=== PATIENT | male | born 1960 | race Caucasian/White ===

== ENCOUNTER 2017-11-21 07:55 | Emergency (ER) | payer OTHER, MEDICARE ==
[2017-11-21 07:56] VITALS: BMI 27.3
[2017-11-21 08:17] VITALS: PULSE 72; RESP 18; TEMP 98.2
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
--- NOTE | 2017-11-21 08:44 | RAD ---
Date of service: 11/21/2017 HISTORY: r/o infiltrate COMPARISON: Comparison chest dated 02/24/2016 FINDINGS: LUNGS: Mild bibasilar atelectasis right greater than left PLEURA: No significant pleural effusion identified, no pneumothorax apparent. CARDIOVASCULAR: Normal. OSSEOUS STRUCTURES: No significant abnormalities. VISUALIZED UPPER ABDOMEN: Normal. OTHER FINDINGS: None. IMPRESSION: Mild bibasilar atelectasis right greater than left
[2017-11-21 08:46] LABS: BASO # 0.04 K/mm3 (0.0-2.0); BASO % 0.6 % (0.0-3.0); EOS # 0.3 (0.0-0.7); EOS % 4.7 % (1.5-5.0); GRAN # 4.02 (1.4-6.5); GRAN % 60.4 % (50.0-68.0); HEMOGLOBIN 13.2 g/dL (14.0-18.0); LYMPH # 1.8 (1.2-3.4); LYMPH % 26.6 % (22.0-35.0); MEAN CELL VOLUME 85.7 fl (80.0-105.0); MEAN CORPUSCULAR HEMOGLOBIN 27.7 pg (25.0-35.0); MEAN CORPUSCULAR HGB CONC 32.3 g/dl (31.0-37.0); MEAN PLATELET VOLUME 9.2 fl (7.0-11.0); MONO # 0.5 (0.1-0.6); MONO % 7.7 % (1.0-6.0); RBC 4.77 10^6/uL (3.5-6.1); RED CELL DISTRIBUTION WIDTH 13.7 % (11.5-14.5); WHITE BLOOD COUNT 6.7 10^3/ul (4.5-11.0)
[2017-11-21 08:55] LABS: ALB/GLOB RATIO 1.5 (1.1-1.8); ALBUMIN 4.3 g/dL (3.0-4.8); ALT/SGPT 30 U/L (7-56); AST/SGOT 27 U/L (17-59); BLOOD UREA NITROGEN 21 mg/dL (7-21); CALCIUM 9.5 mg/dL (8.4-10.5); GFR NON-AFRICAN AMERICAN 57
[2017-11-21 09:06] LABS: TROPONIN I < 0.01 ng/mL
[2017-11-21 09:40] VITALS: BP 125/70; O2SAT 99
--- NOTE | 2017-11-21 12:56 | CARD ---
APPROVED REPORT Date of service: 11/21/2017 EKG Measurement Heart [id number] <Conclusion> Normal sinus rhythm Normal ECG
== END 2017-11-21 09:38 | disposition home or self-care (01) ==
LOC: ED 07:55
DX: R07.89 Other chest pain (principal); I10 Essential (primary) hypertension

== ENCOUNTER 2017-11-26 08:24 | Inpatient (IN) | payer MEDICARE, OTHER ==
[2017-11-26] MEDS ORDERED: Sodium Chloride 0.9% 1,000 ML IV STA (09:18)
[2017-11-26 10:37] LABS: VENOUS BLOOD GAS BASE EXCESS -0.7 mmol/L (0.0-2.0); VENOUS BLOOD GAS PO2 33 mm/Hg (30-55); VENOUS BLOOD PH 7.39 (7.32-7.43)
[2017-11-26 10:58] LABS: ALB/GLOB RATIO 1.2 (1.1-1.8); ALBUMIN 4.9 g/dL (3.0-4.8); ALT/SGPT 13 U/L (7-56); AMYLASE 68 U/L (35-125); AST/SGOT 51 U/L (17-59); BASO # 0.01 K/mm3 (0.0-2.0); BASO % 0.1 % (0.0-3.0); BLOOD UREA NITROGEN 20 mg/dL (7-21); CALCIUM 9.8 mg/dL (8.4-10.5); EOS % 0.4 % (1.5-5.0); GFR NON-AFRICAN AMERICAN > 60; GRAN # 8.09 (1.4-6.5); GRAN % 85.4 % (50.0-68.0); HEMOGLOBIN 15.4 g/dL (14.0-18.0); LIPASE 27 U/L (23-300); LYMPH # 0.9 (1.2-3.4); MEAN CELL VOLUME 84.5 fl (80.0-105.0); MEAN CORPUSCULAR HEMOGLOBIN 28.1 pg (25.0-35.0); MEAN CORPUSCULAR HGB CONC 33.2 g/dl (31.0-37.0); MONO # 0.5 (0.1-0.6); MONO % 5.1 % (1.0-6.0); RBC 5.49 10^6/uL (3.5-6.1); RED CELL DISTRIBUTION WIDTH 13.6 % (11.5-14.5); WHITE BLOOD COUNT 9.5 10^3/ul (4.5-11.0)
[2017-11-26 11:04] LABS: TROPONIN I 0.01 ng/mL
[2017-11-26 11:05] LABS: PH,URINE 5.5 (4.7-8.0); URINE BILIRUBIN NEGATIVE (NEGATIVE); URINE BLOOD NEGATIVE (NEGATIVE); URINE GLUCOSE (UA) NEGATIVE (NEGATIVE); URINE LEUKOCYTE ESTERASE NEGATIVE Leu/uL (NEGATIVE); URINE PROTEIN 30 mg/dL (<30 mg/dL); URINE UROBILINOGEN 0.2 E.U./dL (<1 E.U./dL)
[2017-11-26 11:06] LABS: INR 1.14; PARTIAL THROMBOPLASTIN TIME 30.3 Seconds (25.1-36.5); PROTHROMBIN TIME 13.1 SECONDS (9.4-12.5)
[2017-11-26 11:10] LABS: URINE APPEARANCE CLEAR (CLEAR); URINE COLOR YELLOW (YELLOW)
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
[2017-11-26 11:25] LABS: URINE RBC 0 - 2 /hpf (0-2); URINE WBC 0 - 2 /hpf (0-6)
[2017-11-26] MEDS ORDERED: Iohexol 350 MG/100 ML VIAL ONE (11:25)
[2017-11-26 11:26] LABS: URINE BACTERIA MANY (NEG); URINE EPITHELIAL CELLS 0 - 2 /hpf (0-5); URINE HYALINE CAST 0 - 2 /hpf
[2017-11-26 11:27] LABS: URINE AMORPHOUS SEDIMENT FEW
[2017-11-26 12:02] LABS: ALB/GLOB RATIO 1.3 (1.1-1.8); ALBUMIN 3.9 g/dL (3.0-4.8); ALT/SGPT 26 U/L (7-56); AST/SGOT 22 U/L (17-59); BLOOD UREA NITROGEN 18 mg/dL (7-21); CALCIUM 8.8 mg/dL (8.4-10.5); GFR NON-AFRICAN AMERICAN > 60
--- NOTE | 2017-11-26 13:20 | CT ---
Date of service: 11/26/2017 PROCEDURE: CT Abdomen and Pelvis with contrast HISTORY: abdominal pain COMPARISON: None. TECHNIQUE: Contrast dose: 100 mL Omnipaque 350 Radiation dose: Total exam DLP = 514.9 mGy-cm. This CT exam was performed using one or more of the following dose reduction techniques: Automated exposure control, adjustment of the mA and/or kV according to patient size, and/or use of iterative reconstruction technique. FINDINGS: LOWER THORAX: Cardiomegaly. Coronary arterial and valvular calcifications. Bibasilar dependent atelectasis. Trace bilateral pleural effusions. LIVER: Unremarkable. No gross lesion or ductal dilatation. GALLBLADDER AND BILE DUCTS: Unremarkable. PANCREAS: Unremarkable. No gross lesion or ductal dilatation. SPLEEN: Unremarkable. ADRENALS: Unremarkable. No mass. KIDNEYS AND URETERS: Unremarkable. No hydronephrosis. No solid mass. VASCULATURE: Unremarkable. No aortic aneurysm. BOWEL: Diffuse dilatation of small bowel that begins in the proximal jejunum and tapers in the distal ileum in. There is a small amount of free fluid in the posterior right pericolic gutter as well as in the right upper quadrant near the hepatic flexure. Mild colonic diverticulosis. No gross mural thickening. APPENDIX: Normal appendix. PERITONEUM: Unremarkable. No free fluid. No free air. LYMPH NODES: Unremarkable. No enlarged lymph nodes. BLADDER: Unremarkable. REPRODUCTIVE: Unremarkable. BONES: No acute fracture. OTHER FINDINGS: None. IMPRESSION: High-grade small bowel obstruction with transition in the distal ileum in the right lower quadrant. Findings conveyed to URSULA Kelley by Dr. Castellano at 1:15 p.m. on 11/26/2017.
[2017-11-26] MEDS ORDERED: Vitamins A & D Oint UD Foilpak TOP PRN (14:17)
[2017-11-26] MEDS ORDERED: Morphine 2 mg/ml ISec IVP PRN (14:17)
[2017-11-26] MEDS: Sodium Chloride 0.9% 1,000 ML IV SCH (14:42)
--- NOTE | 2017-11-26 15:21 | RAD ---
Date of service: 11/26/2017 HISTORY: admission COMPARISON: 11/21/2017 FINDINGS: LUNGS: No active pulmonary disease. PLEURA: No significant pleural effusion identified, no pneumothorax apparent. CARDIOVASCULAR: No radiographic findings to suggest acute or significant cardiovascular disease. OSSEOUS STRUCTURES: No significant abnormalities. VISUALIZED UPPER ABDOMEN: Normal. OTHER FINDINGS: None. IMPRESSION: No active disease. No significant interval change compared to the prior examination(s).
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
[2017-11-26 19:23] VITALS: BMI 28.3
[2017-11-26] MEDS ORDERED: Influenza Vaccine 60 mcg/0.5 mL SYR (4YR UP) IM ONE (19:23)
[2017-11-26] MEDS ORDERED: Pneumococcal 23-Valent Vaccine IM ONE (19:23)
[2017-11-26] MEDS: Morphine 2 mg/ml ISec IVP PRN (19:58)
[2017-11-27 07:20] LABS: BASO # 0.01 K/mm3 (0.0-2.0); BASO % 0.2 % (0.0-3.0); EOS # 0.1 (0.0-0.7); EOS % 1.5 % (1.5-5.0); GRAN # 2.83 (1.4-6.5); GRAN % 62.4 % (50.0-68.0); HEMOGLOBIN 13.2 g/dL (14.0-18.0); LYMPH % 21.8 % (22.0-35.0); MEAN CELL VOLUME 83.8 fl (80.0-105.0); MEAN CORPUSCULAR HEMOGLOBIN 27.1 pg (25.0-35.0); MEAN CORPUSCULAR HGB CONC 32.4 g/dl (31.0-37.0); MEAN PLATELET VOLUME 9.7 fl (7.0-11.0); MONO # 0.6 (0.1-0.6); MONO % 14.1 % (1.0-6.0); RBC 4.87 10^6/uL (3.5-6.1); RED CELL DISTRIBUTION WIDTH 13.6 % (11.5-14.5); WHITE BLOOD COUNT 4.5 10^3/ul (4.5-11.0)
[2017-11-27 07:22] LABS: INR 1.14; PROTHROMBIN TIME 13.2 SECONDS (9.4-12.5)
[2017-11-27 07:33] LABS: ALB/GLOB RATIO 1.4 (1.1-1.8); ALBUMIN 3.6 g/dL (3.0-4.8); ALT/SGPT 31 U/L (7-56); AST/SGOT 22 U/L (17-59); BLOOD UREA NITROGEN 16 mg/dL (7-21); CALCIUM 8.6 mg/dL (8.4-10.5); GFR NON-AFRICAN AMERICAN > 60
--- NOTE | 2017-11-27 08:05 | CP.PCM.PN ---
Subjective - Date & Time of Evaluation Date of Evaluation: 11/27/17 Time of Evaluation: 08:03 - Subjective Subjective: General Surgery - Dr. Alvarez Pt S&E. MANI. Pt states his abdominal pain is improved. He is passing flatus, no BM yet. He has been NPO with NGT in place with scant output. No nausea/vomiting, fevers/chills. Objective - Vital Signs/Intake and Output Vital Signs (last 24 hours): Temp Pulse Resp BP Pulse Ox 99.3 F 92 H 18 142/98 H 96 11/26/17 19:00 11/26/17 19:00 11/26/17 19:00 11/26/17 19:00 11/26/17 17:14 Intake and Output: 11/27/17 11/27/17 06:59 18:59 Intake Total 1200 Output Total 400 Balance 800 - Medications Medications: Current Medications Heparin Sodium (Porcine) (Heparin) 5,000 units SC Q12 ANDRES; Protocol Last Admin: 11/26/17 21:47 Dose: 5,000 units Sodium Chloride (Sodium Chloride 0.9%) 1,000 mls @ 100 mls/hr IV .Q10H ANDRES Last Admin: 11/26/17 14:42 Dose: 100 mls/hr Morphine Sulfate (Morphine) 1 mg IVP Q4H PRN PRN Reason: Pain, severe (8-10) Last Admin: 11/26/17 19:58 Dose: 1 mg Ondansetron HCl (Zofran Inj) 4 mg IVP Q4H PRN PRN Reason: Nausea/Vomiting Last Admin: 11/26/17 19:59 Dose: 4 mg Vitamin A (Vitamin A & D Oint Ud Foilpak) 1 ea TOP Q2 PRN PRN Reason: Dry mouth - Labs Labs: 11/27/17 06:30 11/27/17 06:30 PT 13.2 SECONDS (9.4-12.5) H 11/27/17 06:30 INR 1.14 11/27/17 06:30 APTT 27.0 Seconds (25.1-36.5) 11/27/17 06:30 - Constitutional Appears: No Acute Distress - Head Exam Head Exam: ATRAUMATIC, NORMAL INSPECTION, NORMOCEPHALIC - ENT Exam ENT Exam: Mucous Membranes Moist - Respiratory Exam Respiratory Exam: NORMAL BREATHING PATTERN. absent: Respiratory Distress - Cardiovascular Exam Cardiovascular Exam: REGULAR RHYTHM - GI/Abdominal Exam GI & Abdominal Exam: Distended, Soft. absent: Guarding, Rigid, Tenderness, Rebound - Neurological Exam Neurological Exam: Alert, Awake, Oriented x3 - Psychiatric Exam Psychiatric exam: Normal Affect, Normal Mood - Skin Skin Exam: Dry, Intact Assessment and Plan - Assessment and Plan (Free Text) Assessment: 57M with SBO, resolving DC NGT Continue IVF Start Sips of Clear liquids as tolerated Encourage Ambulation Replace electrolytes PRN Will continue to follow SANJAY Connell PGY4
--- NOTE | 2017-11-27 08:53 | CARD ---
APPROVED REPORT Date of service: 11/26/2017 EKG Measurement Heart [id number] <Conclusion> Normal sinus rhythm Normal ECG No change
[2017-11-27] MEDS ORDERED: EnalaprilAT 1.25 mg/ml Inj IVP PRN (09:44)
--- NOTE | 2017-11-27 10:09 | RAD ---
Date of service: 11/26/2017 HISTORY: ngt insertion COMPARISON: No prior. FINDINGS: BOWEL: Distal small bowel obstruction identified. Nasogastric tube in the proximal stomach. The side hole is at the level of the gastroesophageal junction. BONES: Normal. OTHER FINDINGS: None. IMPRESSION: Nasogastric tube identified in a decompressed stomach. Optimal placement would include advancing the tube approximately 5 cm.
[2017-11-27] MEDS: Sodium Chloride 0.9% 1,000 ML IV SCH (11:30)
--- NOTE | 2017-11-27 15:54 | CP.PCM.PN ---
<Stanislaw Gandhi - Last Filed: 11/27/17 15:50> Subjective - Date & Time of Evaluation Date of Evaluation: 11/27/17 Time of Evaluation: 15:50 - Subjective Subjective: Internal Medicine Progress Note(Hospitalist Service): Emir PGY2 Patient seen and assessed at bedside. No overnight events noted by patient or nursing staff. Patient reports that he still has abdominal pain with some associated nausea but denies vomiting. Minimal NGT drainage noted. Patient denies any complaints at this time including fevers, chills, headache, chest pain, SOB, cough, wheezing, V/D/C, changes in urine output or skin changes. Objective - Vital Signs/Intake and Output Vital Signs (last 24 hours): Temp Pulse Resp BP Pulse Ox 99.2 F 99 H 18 136/94 H 94 L 11/27/17 06:00 11/27/17 06:00 11/27/17 06:00 11/27/17 06:00 11/27/17 06:00 Intake and Output: 11/27/17 11/27/17 06:59 18:59 Intake Total 1200 Output Total 400 Balance 800 - Medications Medications: Current Medications Docusate Sodium (Colace) 100 mg PO TID [facility] Last Admin: 11/27/17 14:50 Dose: 100 mg Enalaprilat (Vasotec Iv) 1.25 mg IVP Q6H PRN PRN Reason: Systolic Blood Pressure Heparin Sodium (Porcine) (Heparin) 5,000 units SC Q12 [facility]; Protocol Last Admin: 11/27/17 10:41 Dose: 5,000 units Sodium Chloride (Sodium Chloride 0.9%) 1,000 mls @ 100 mls/hr IV .Q10H [facility] Last Admin: 11/26/17 14:42 Dose: 100 mls/hr Morphine Sulfate (Morphine) 1 mg IVP Q4H PRN PRN Reason: Pain, severe (8-10) Last Admin: 11/26/17 19:58 Dose: 1 mg Ondansetron HCl (Zofran Inj) 4 mg IVP Q4H PRN PRN Reason: Nausea/Vomiting Last Admin: 11/26/17 19:59 Dose: 4 mg Vitamin A (Vitamin A & D Oint Ud Foilpak) 1 ea TOP Q2 PRN PRN Reason: Dry mouth - Labs Labs: 11/27/17 06:30 11/27/17 06:30 PT 13.2 SECONDS (9.4-12.5) H 11/27/17 06:30 INR 1.14 11/27/17 06:30 APTT 27.0 Seconds (25.1-36.5) 11/27/17 06:30 - Constitutional Appears: Non-toxic, No Acute Distress - Head Exam Head Exam: ATRAUMATIC, NORMOCEPHALIC - Eye Exam Eye Exam: EOMI, Normal appearance - ENT Exam ENT Exam: Mucous Membranes Moist Additional comments: NGT in place - Neck Exam Neck Exam: Full ROM - Respiratory Exam Respiratory Exam: Clear to Ausculation Bilateral, NORMAL BREATHING PATTERN. absent: Accessory Muscle Use, Chest Wall Tenderness, Decreased Breath Sounds, Prolonged Expiratory Phase, Rales, Rhonchi, Wheezes, Respiratory Distress, S tridor - Cardiovascular Exam Cardiovascular Exam: REGULAR RHYTHM, RRR, +S1, +S2 - GI/Abdominal Exam GI & Abdominal Exam: Distended (Mild; Interval improvement noted), Soft, Tenderness (Diffuse TTP; Interval improvement noted), Normal Bowel Sounds. absent: Bruit, Firm, Guarding, Rigid, Diminished Bowel Sounds, Hernia, Hy peractive Bowel Sounds, Hypoactive Bowel Sounds, Mass, Organomegaly, Pulsatile Mass, Rebound - Extremities Exam Extremities Exam: absent: Calf Tenderness - Neurological Exam Neurological Exam: Alert, Awake, Normal Gait, Oriented x3 - Psychiatric Exam Psychiatric exam: Normal Affect, Normal Mood - Skin Skin Exam: Dry, Intact, Normal Color, Warm Assessment and Plan - Assessment and Plan (Free Text) Assessment: 57 year old male with a past medical history significant for HTN, HLD, GERD and BPH who presented with one day of nausea with associated NBNB vomiting and diffuse abdominal pain. CT Abdomen/Pelvis showed high-grade small bowel obstruction with transition in the distal ileum in the right lower quadrant. Plan: 1. SBO -CT Abdomen/Pelvis reviewed and discussed with patient -NPO Diet -Continue NGT with suctioning as ordered -Continue Normal Saline at 100mls/hr -Continue Morphine 1q4 IVP PRN for severe pain -Continue Zofran 4q4 IVP PRN for N/V -Continue Colace 100mg PO TID -Surgery consulted, all recommendations appreciated 2. History of HTN -Vasotec PRN -Holding home PO medications GI Prophylaxis: Protonix DVT Prophylaxis: Heparin Patient seen and case discussed with attending, Dr. Aria Juarez. <Aria Juarez R - Last Filed: 11/28/17 16:33> Objective - Vital Signs/Intake and Output Vital Signs (last 24 hours): Temp Pulse Resp BP Pulse Ox 98.9 F 98 H 18 139/93 H 95 11/28/17 09:01 11/28/17 09:01 11/28/17 09:01 11/28/17 09:01 11/28/17 09:01 - Medications Medications: Current Medications Docusate Sodium (Colace) 100 mg PO TID [facility] Last Admin: 11/28/17 13:43 Dose: Not Given Enalaprilat (Vasotec Iv) 1.25 mg IVP Q6H PRN PRN Reason: Systolic Blood Pressure Heparin Sodium (Porcine) (Heparin) 5,000 units SC Q12 [facility]; Protocol Last Admin: 11/28/17 09:05 Dose: 5,000 units Sodium Chloride (Sodium Chloride 0.9%) 1,000 mls @ 100 mls/hr IV .Q10H [facility] Last Admin: 11/28/17 09:06 Dose: 100 mls/hr Morphine Sulfate (Morphine) 1 mg IVP Q4H PRN PRN Reason: Pain, severe (8-10) Last Admin: 11/28/17 15:45 Dose: 1 mg Ondansetron HCl (Zofran Inj) 4 mg IVP Q4H PRN PRN Reason: Nausea/Vomiting Last Admin: 11/26/17 19:59 Dose: 4 mg Vitamin A (Vitamin A & D Oint Ud Foilpak) 1 ea TOP Q2 PRN PRN Reason: Dry mouth - Labs Labs: 11/28/17 07:00 11/28/17 07:00 PT 13.2 SECONDS (9.4-12.5) H 11/27/17 06:30 INR 1.14 11/27/17 06:30 APTT 27.0 Seconds (25.1-36.5) 11/27/17 06:30 Attending/Attestation - Attestation I have personally seen and examined this patient.: Yes I have fully participated in the care of the patient.: Yes I have reviewed all pertinent clinical information, including history, physical exam and plan: Yes Notes (Text): Patient seen and examined by me at 9:45AM with resident 11/27/17. Case including HPI, physical exam, andassessment and plan discussed with resident. Agree with above with following additions/corrections. Patient is a 57-year-old male with past medical history significant for hypertension, hyperlipidemia, GERD, and BPH who presented to the emergency room with abdominal pain, nausea, vomiting. Patient states that he is feeling ok. NGT was placed. Patient states it is uncomfortable but abdominal pain has improved. He denies any nausea or vomiting today. He states that abdominal pain today is a 7/10. No chest pain or shortness of breath. No headaches or dizziness. No fevers or chills. No dysuria. Patient states he did pass gas twice yesterday but no bowel movements. Physical exam: General: Awake and alert lying in bed in no acute distress HEENT: Normocephalic atraumatic. Pupils equal reactive. No scleral icterus. NGT in place with minimal bilious output. Neck is supple. Cardiovascular: Normal rhythm. Normal S1, S2. No murmurs, rubs, or gallops appreciated Pulmonary: Normal respiratory effort. No rhonchi, rales, or wheezing appreciated Gastrointestinal: Soft. Positive distention. Positive generalized tenderness wi th mild palpation. Positive bowel sounds all 4 quadrants, no guarding. Musculoskeletal: Normal range of motion all extremities. No calf tenderness. No edema appreciated. No CVA tenderness. Central nervous system: AAO 3. Cranial nerves 2-12 grossly intact Dermatologic: Skin warm and dry. Assessment and plan: Patient is a 57-year-old male with past medical history significant for hypertension, hyperlipidemia, GERD, and BPH who presented to the emergency room with abdominal pain, nausea, vomiting. 1. Small bowel obstruction. S/P NGT placement. Continue with IV fluids and NPO. Surgery following, recommendations appreciated. Continue Zofran as needed. Continue pain management. CT abdomen and pelvis per radiologist shows high-grade small bowel structure with transition in the distal ileum in the right lower quadrant. Abdominal xray per radiologist showed nasogastric tube identified in the decompressed stomach, optimal placement with include advancing the tube approximately 5 cm. 2. Hypertension. Patient is unsure of what medication he takes at home. Placed on IV Vasotec as needed for now. 3. GERD. Patient is unsure of what medications he takes at home. is supposed to bring medications to the hospital. 4. Hyperlipidemia. Patient is on a statin but unsure of which medication. Pe nding list from or will need to call patient's pharmacy at [facility] when opened tomorrow. 5. BPH. Patient unsure of what medications he takes at home. Pending list from or will need to call patient's pharmacy at [facility] when opened tomorrow. 6. Patient is a full code. Case discussed in detail with patient regarding current diagnosis and treatment plan.
[2017-11-27] MEDS ORDERED: Alum-Mag Hydrox-Simethicone Susp (30 mL) PO ONE (16:42)
--- NOTE | 2017-11-28 07:43 | CP.PCM.PN ---
Subjective - Date & Time of Evaluation Date of Evaluation: 11/28/17 Time of Evaluation: 07:36 - Subjective Subjective: General Surgery progress note for Dr. Alvarez Patient seen and examined at bedside. He states that his abdominal pain is improved. He is passing flatus and had multiple bowel movements. Denies fevers, chills, nausea, or vomiting. Objective - Vital Signs/Intake and Output Vital Signs (last 24 hours): Temp Pulse Resp BP Pulse Ox 100.1 F H 105 H 19 129/84 94 L 11/27/17 16:42 11/27/17 16:42 11/27/17 16:42 11/27/17 16:42 11/27/17 16:42 - Medications Medications: Current Medications Docusate Sodium (Colace) 100 mg PO TID [facility] Last Admin: 11/27/17 17:41 Dose: 100 mg Enalaprilat (Vasotec Iv) 1.25 mg IVP Q6H PRN PRN Reason: Systolic Blood Pressure Heparin Sodium (Porcine) (Heparin) 5,000 units SC Q12 [facility]; Protocol Last Admin: 11/27/17 21:04 Dose: 5,000 units Sodium Chloride (Sodium Chloride 0.9%) 1,000 mls @ 100 mls/hr IV .Q10H [facility] Last Admin: 11/27/17 11:30 Dose: 100 mls/hr Morphine Sulfate (Morphine) 1 mg IVP Q4H PRN PRN Reason: Pain, severe (8-10) Last Admin: 11/26/17 19:58 Dose: 1 mg Ondansetron HCl (Zofran Inj) 4 mg IVP Q4H PRN PRN Reason: Nausea/Vomiting Last Admin: 11/26/17 19:59 Dose: 4 mg Vitamin A (Vitamin A & D Oint Ud Foilpak) 1 ea TOP Q2 PRN PRN Reason: Dry mouth - Labs Labs: 11/27/17 06:30 11/27/17 06:30 PT 13.2 SECONDS (9.4-12.5) H 11/27/17 06:30 INR 1.14 11/27/17 06:30 APTT 27.0 Seconds (25.1-36.5) 11/27/17 06:30 - Constitutional Appears: Well, Non-toxic, No Acute Distress - Head Exam Head Exam: ATRAUMATIC, NORMOCEPHALIC - Eye Exam Eye Exam: Normal appearance - ENT Exam ENT Exam: Mucous Membranes Moist - Respiratory Exam Respiratory Exam: NORMAL BREATHING PATTERN. absent: Accessory Muscle Use, Respiratory Distress - Cardiovascular Exam Cardiovascular Exam: RRR - GI/Abdominal Exam GI & Abdominal Exam: Soft. absent: Distended, Guarding, Tenderness - Extremities Exam Extremities Exam: Normal Inspection - Neurological Exam Neurological Exam: Alert, Awake, Oriented x3 - Psychiatric Exam Psychiatric exam: Normal Affect, Normal Mood - Skin Skin Exam: Dry, Intact, Normal Color, Warm Assessment and Plan - Assessment and Plan (Free Text) Assessment: 57 year old male presenting with nausea, vomiting, and diffuse abdominal pain. CT Abdomen/Pelvis showed high-grade small bowel obstruction with transition in the distal ileum in the right lower quadrant. Plan: - Start liquid diet - Encourage ambulation as tolerated - GI follow up as outpatient Discussed case with Dr. Antonio Diaz DO PGY-1
[2017-11-28 07:47] LABS: EOS % 0.9 % (1.5-5.0); GRAN # 1.11 (1.4-6.5); GRAN % 51.4 % (50.0-68.0); HEMOGLOBIN 13.2 g/dL (14.0-18.0); LYMPH # 0.6 (1.2-3.4); LYMPH % 29.6 % (22.0-35.0); MEAN CELL VOLUME 83.6 fl (80.0-105.0); MEAN CORPUSCULAR HGB CONC 32.3 g/dl (31.0-37.0); MEAN PLATELET VOLUME 9.3 fl (7.0-11.0); MONO # 0.4 (0.1-0.6); MONO % 18.1 % (1.0-6.0); RBC 4.89 10^6/uL (3.5-6.1); RED CELL DISTRIBUTION WIDTH 13.5 % (11.5-14.5)
[2017-11-28 08:07] LABS: WHITE BLOOD COUNT 2.2 10^3/ul (4.5-11.0)
[2017-11-28 08:18] LABS: ALB/GLOB RATIO 1.2 (1.1-1.8); ALBUMIN 3.9 g/dL (3.0-4.8); ALT/SGPT 26 U/L (7-56); AST/SGOT 29 U/L (17-59); BLOOD UREA NITROGEN 18 mg/dL (7-21); CALCIUM 8.8 mg/dL (8.4-10.5); GFR NON-AFRICAN AMERICAN > 60
[2017-11-28] MEDS: Sodium Chloride 0.9% 1,000 ML IV SCH ×2 (09:06→17:46)
--- NOTE | 2017-11-28 14:56 | CP.PCM.PN ---
<Melida Nunez - Last Filed: 11/28/17 16:07> Subjective - Date & Time of Evaluation Date of Evaluation: 11/28/17 Time of Evaluation: 07:25 - Subjective Subjective: Internal Medicine progress note for Dr. Vilchis Patient seen and examined this morning at bedside. Upon exam the patient had had NGT removed this AM and had had bilious/gastric emesis following a trial of CLD. Patient endorses mild nausea. NGT replacement attempted and was unsuccessful/patient could not tolerate and refused further attempts. Patient was advised to sit upright in bed as much as possible and to not lay back so as to avoid aspiration risk. Patient voiced understanding that if emesis persisted we would attempt NGT again. patient endorses mild to moderate abdominal pain and has not yet passed flatus or had BM. Paitent otherwise denies RAWLS, CP, SOB, dysuria, extremity pain. Objective - Vital Signs/Intake and Output Vital Signs (last 24 hours): Temp Pulse Resp BP Pulse Ox 98.9 F 98 H 18 139/93 H 95 11/28/17 09:01 11/28/17 09:01 11/28/17 09:01 11/28/17 09:01 11/28/17 09:01 - Medications Medications: Current Medications Docusate Sodium (Colace) 100 mg PO TID [facility] Last Admin: 11/28/17 13:43 Dose: Not Given Enalaprilat (Vasotec Iv) 1.25 mg IVP Q6H PRN PRN Reason: Systolic Blood Pressure Heparin Sodium (Porcine) (Heparin) 5,000 units SC Q12 [facility]; Protocol Last Admin: 11/28/17 09:05 Dose: 5,000 units Sodium Chloride (Sodium Chloride 0.9%) 1,000 mls @ 100 mls/hr IV .Q10H [facility] Last Admin: 11/28/17 09:06 Dose: 100 mls/hr Morphine Sulfate (Morphine) 1 mg IVP Q4H PRN PRN Reason: Pain, severe (8-10) Last Admin: 11/26/17 19:58 Dose: 1 mg Ondansetron HCl (Zofran Inj) 4 mg IVP Q4H PRN PRN Reason: Nausea/Vomiting Last Admin: 11/26/17 19:59 Dose: 4 mg Vitamin A (Vitamin A & D Oint Ud Foilpak) 1 ea TOP Q2 PRN PRN Reason: Dry mouth - Labs Labs: 11/28/17 07:00 11/28/17 07:00 PT 13.2 SECONDS (9.4-12.5) H 11/27/17 06:30 INR 1.14 11/27/17 06:30 APTT 27.0 Seconds (25.1-36.5) 11/27/17 06:30 - Constitutional Appears: Non-toxic, No Acute Distress - Head Exam Head Exam: ATRAUMATIC, NORMOCEPHALIC - Eye Exam Eye Exam: EOMI - ENT Exam ENT Exam: Mucous Membranes Moist - Neck Exam Neck Exam: Full ROM - Respiratory Exam Respiratory Exam: NORMAL BREATHING PATTERN - Cardiovascular Exam Cardiovascular Exam: REGULAR RHYTHM - GI/Abdominal Exam GI & Abdominal Exam: Distended, Guarding, Soft, Tenderness Additional comments: mild diffuse tenderness with mild guarding and distention - Extremities Exam Extremities Exam: absent: Calf Tenderness, Pedal Edema - Neurological Exam Neurological Exam: Alert, Awake, Oriented x3 - Psychiatric Exam Psychiatric exam: Normal Affect, Normal Mood - Skin Skin Exam: Dry, Intact, Normal Color, Warm Assessment and Plan - Assessment and Plan (Free Text) Assessment: 57 year old male with a past medical history significant for HTN, HLD, GERD and BPH who presented with one day of nausea with associated NBNB vomiting and diffuse abdominal pain. CT Abdomen/Pelvis showed high-grade small bowel obstruction with transition in the distal ileum in the right lower quadrant. NGT removed this AM d/t scant output,. Patient had bilious vomiting following trial of CLD. NGT replacement was attempted, patient could not tolerate and refused future attempts. Will monitor for continued vomiting and bowel function. Plan: 1. SBO -CT Abdomen/Pelvis reviewed and discussed with patient -NPO Diet -Continue Normal Saline at 100mls/hr -Continue Morphine 1q4 IVP PRN for severe pain -Continue Zofran 4q4 IVP PRN for N/V -Continue Colace 100mg PO TID -will attempt to place NGT again if emesis continues -Surgery consulted, all recommendations appreciated 2. History of HTN -Vasotec PRN -Holding home PO medications GI Prophylaxis: Protonix DVT Prophylaxis: Heparin Patient seen and case discussed with attending, Dr. Deng Nunez, PGY 1 <Sourav Vilchis - Last Filed: 11/29/17 17:12> Objective - Vital Signs/Intake and Output Vital Signs (last 24 hours): Temp Pulse Resp BP Pulse Ox 99.2 F 90 19 140/95 H 95 11/29/17 16:36 11/29/17 16:36 11/29/17 16:36 11/29/17 16:36 11/29/17 16:36 - Medications Medications: Current Medications Enalaprilat (Vasotec Iv) 1.25 mg IVP Q6H PRN PRN Reason: Systolic Blood Pressure Heparin Sodium (Porcine) (Heparin) 5,000 units SC Q12 [facility]; Protocol Last Admin: 11/29/17 09:22 Dose: 5,000 units Sodium Chloride (Sodium Chloride 0.9%) 1,000 mls @ 100 mls/hr IV .Q10H [facility] Last Admin: 11/29/17 08:32 Dose: 100 mls/hr Morphine Sulfate (Morphine) 1 mg IVP Q4H PRN PRN Reason: Pain, severe (8-10) Last Admin: 11/28/17 15:45 Dose: 1 mg Ondansetron HCl (Zofran Inj) 4 mg IVP Q4H PRN PRN Reason: Nausea/Vomiting Last Admin: 11/26/17 19:59 Dose: 4 mg Vitamin A (Vitamin A & D Oint Ud Foilpak) 1 ea TOP Q2 PRN PRN Reason: Dry mouth - Labs Labs: 11/29/17 11:40 11/29/17 11:40 PT 13.2 SECONDS (9.4-12.5) H 11/27/17 06:30 INR 1.14 11/27/17 06:30 APTT 27.0 Seconds (25.1-36.5) 11/27/17 06:30 Attending/Attestation - Attestation I have personally seen and examined this patient.: Yes I have fully participated in the care of the patient.: Yes I have reviewed all pertinent clinical information, including history, physical exam and plan: Yes Notes (Text): 11/29/17 17:04 Attending note; Patient seen and examined with resident. Patient's by the bedside. Patient had an episode of bilious vomiting. NG tube was removed yesterday. Patient is a 57-year-old male with past medical history significant for hypertension, hyperlipidemia, GERD, and BPH who presented to the emergency room with abdominal pain, nausea, vomiting. 1. Small bowel obstruction. S/P NGT removed yesterday. Patient had one episode of bilious vomiting. Continue with IV fluids and NPO. Case discussed with surgery in detail . Continue Zofran as needed. Nothing by mouth and monitor closely. CT abdomen and pelvis per radiologist shows high-grade small bowel structure w ith transition in the distal ileum in the right lower quadrant. 2. Hypertension. Continue IV Vasotec when necessary. 3. GERD. Continue IV Protonix. 4. Hyperlipidemia. hold po medications for now. Upon discharge the patient will follow-up with Dr. Mckeon. Case discussed in detail with patient regarding current diagnosis and treatment plan.
[2017-11-28] MEDS: Morphine 2 mg/ml ISec IVP PRN (15:45)
--- NOTE | 2017-11-29 07:49 | CP.PCM.PN ---
Subjective - Date & Time of Evaluation Date of Evaluation: 11/29/17 Time of Evaluation: 07:46 - Subjective Subjective: General Surgery progress note for Dr. Alvarez Patient seen and examined at bedside. He admits to nausea but no vomiting. He is passing flatus and had bowel movements yesterday. Denies fevers, chills, chest pain, abdominal pain, or any other complaints. Objective - Vital Signs/Intake and Output Vital Signs (last 24 hours): Temp Pulse Resp BP Pulse Ox 100.1 F H 96 H 20 133/89 96 11/28/17 18:00 11/28/17 18:00 11/28/17 18:00 11/28/17 18:00 11/28/17 18:00 - Medications Medications: Current Medications Docusate Sodium (Colace) 100 mg PO TID [facility] Last Admin: 11/28/17 17:44 Dose: Not Given Enalaprilat (Vasotec Iv) 1.25 mg IVP Q6H PRN PRN Reason: Systolic Blood Pressure Heparin Sodium (Porcine) (Heparin) 5,000 units SC Q12 [facility]; Protocol Last Admin: 11/28/17 22:06 Dose: 5,000 units Sodium Chloride (Sodium Chloride 0.9%) 1,000 mls @ 100 mls/hr IV .Q10H [facility] Last Admin: 11/28/17 17:46 Dose: 100 mls/hr Morphine Sulfate (Morphine) 1 mg IVP Q4H PRN PRN Reason: Pain, severe (8-10) Last Admin: 11/28/17 15:45 Dose: 1 mg Ondansetron HCl (Zofran Inj) 4 mg IVP Q4H PRN PRN Reason: Nausea/Vomiting Last Admin: 11/26/17 19:59 Dose: 4 mg Vitamin A (Vitamin A & D Oint Ud Foilpak) 1 ea TOP Q2 PRN PRN Reason: Dry mouth - Labs Labs: 11/28/17 07:00 11/28/17 07:00 PT 13.2 SECONDS (9.4-12.5) H 11/27/17 06:30 INR 1.14 11/27/17 06:30 APTT 27.0 Seconds (25.1-36.5) 11/27/17 06:30 - Constitutional Appears: Well, Non-toxic, No Acute Distress - Head Exam Head Exam: ATRAUMATIC, NORMOCEPHALIC - Eye Exam Eye Exam: Normal appearance - ENT Exam ENT Exam: Mucous Membranes Moist - Respiratory Exam Respiratory Exam: NORMAL BREATHING PATTERN. absent: Accessory Muscle Use, Respiratory Distress - Cardiovascular Exam Cardiovascular Exam: RRR - GI/Abdominal Exam GI & Abdominal Exam: Soft. absent: Distended, Guarding, Tenderness - Extremities Exam Extremities Exam: Normal Inspection - Neurological Exam Neurological Exam: Alert, Awake, Oriented x3 - Skin Skin Exam: Dry, Intact, Normal Color, Warm Assessment and Plan - Assessment and Plan (Free Text) Assessment: 57 year old male presenting with nausea, vomiting, and diffuse abdominal pain. CT Abdomen/Pelvis showed high-grade small bowel obstruction with transition in the distal ileum in the right lower quadrant. Plan: - Will advance diet today as tolerated - Encourage ambulation - GI follow-up as outpatient to get colonoscopy/endoscopy Discussed case with Dr. Antonio Diaz DO PGY-1
[2017-11-29] MEDS: Sodium Chloride 0.9% 1,000 ML IV SCH (08:32)
[2017-11-29 11:54] LABS: BASO # 0.02 K/mm3 (0.0-2.0); BASO % 0.5 % (0.0-3.0); EOS # 0.1 (0.0-0.7); EOS % 2.2 % (1.5-5.0); GRAN # 1.81 (1.4-6.5); GRAN % 44.9 % (50.0-68.0); HEMOGLOBIN 13.4 g/dL (14.0-18.0); LYMPH # 1.3 (1.2-3.4); LYMPH % 32.3 % (22.0-35.0); MEAN CELL VOLUME 83.2 fl (80.0-105.0); MEAN CORPUSCULAR HEMOGLOBIN 27.2 pg (25.0-35.0); MEAN CORPUSCULAR HGB CONC 32.7 g/dl (31.0-37.0); MEAN PLATELET VOLUME 9.1 fl (7.0-11.0); MONO # 0.8 (0.1-0.6); MONO % 20.1 % (1.0-6.0); PLATELET COUNT 235 10^3/uL (120.0-450.0); RBC 4.93 10^6/uL (3.5-6.1); RED CELL DISTRIBUTION WIDTH 13.5 % (11.5-14.5)
[2017-11-29 12:07] LABS: ALB/GLOB RATIO 1.2 (1.1-1.8); ALBUMIN 3.8 g/dL (3.0-4.8); ALT/SGPT 34 U/L (7-56); AST/SGOT 28 U/L (17-59); BLOOD UREA NITROGEN 19 mg/dL (7-21); CALCIUM 8.8 mg/dL (8.4-10.5); GFR NON-AFRICAN AMERICAN > 60
[2017-11-29 12:26] LABS: ATYPICAL LYMPHOCYTE 3 % (0.0-0.0); BAND 4 % (0-2); EOSINOPHIL 1 % (0.0-3.0); LYMPHOCYTE 39 % (22.0-35.0); MONOCYTE 13 % (1.0-6.0); NEUTROPHIL 40 % (50.0-70.0)
--- NOTE | 2017-11-29 13:09 | CP.PCM.PN ---
<Melida Nunez - Last Filed: 11/29/17 16:27> Subjective - Date & Time of Evaluation Date of Evaluation: 11/29/17 Time of Evaluation: 07:25 - Subjective Subjective: Internal Medicine Progress note for Dr. Vilchis patient seen and examined at bedside this morning. Patient is resting in bed but appears uncomfortable and nauseated. Patient does endorse nausea and mild abdominal pain but denies any vomiting overnight he is amenable to attempt to begin a diet again today. he otherwise denies RAWLS, CP, SOB, and extremity pain. Objective - Vital Signs/Intake and Output Vital Signs (last 24 hours): Temp Pulse Resp BP Pulse Ox 97.9 F 90 20 139/91 H 96 11/29/17 08:04 11/29/17 08:04 11/29/17 08:04 11/29/17 08:04 11/29/17 08:04 - Medications Medications: Current Medications Docusate Sodium (Colace) 100 mg PO DAILY ANDRES Enalaprilat (Vasotec Iv) 1.25 mg IVP Q6H PRN PRN Reason: Systolic Blood Pressure Heparin Sodium (Porcine) (Heparin) 5,000 units SC Q12 ANDRES; Protocol Last Admin: 11/29/17 09:22 Dose: 5,000 units Sodium Chloride (Sodium Chloride 0.9%) 1,000 mls @ 100 mls/hr IV .Q10H ANDRES Last Admin: 11/29/17 08:32 Dose: 100 mls/hr Potassium Chloride (Potassium Chloride 20 Meq/100 Ml) 20 meq in 100 mls @ 50 mls/hr IVPB ONCE ONE Stop: 11/29/17 14:24 Morphine Sulfate (Morphine) 1 mg IVP Q4H PRN PRN Reason: Pain, severe (8-10) Last Admin: 11/28/17 15:45 Dose: 1 mg Ondansetron HCl (Zofran Inj) 4 mg IVP Q4H PRN PRN Reason: Nausea/Vomiting Last Admin: 11/26/17 19:59 Dose: 4 mg Vitamin A (Vitamin A & D Oint Ud Foilpak) 1 ea TOP Q2 PRN PRN Reason: Dry mouth - Labs Labs: 11/29/17 11:40 11/29/17 11:40 PT 13.2 SECONDS (9.4-12.5) H 11/27/17 06:30 INR 1.14 11/27/17 06:30 APTT 27.0 Seconds (25.1-36.5) 11/27/17 06:30 - Constitutional Appears: Non-toxic, No Acute Distress - Head Exam Head Exam: ATRAUMATIC, NORMOCEPHALIC - Eye Exam Eye Exam: EOMI - ENT Exam ENT Exam: Mucous Membranes Moist - Respiratory Exam Respiratory Exam: NORMAL BREATHING PATTERN - Cardiovascular Exam Cardiovascular Exam: REGULAR RHYTHM - GI/Abdominal Exam GI & Abdominal Exam: Soft, Tenderness. absent: Distended, Guarding, Rigid - Neurological Exam Neurological Exam: Alert, Awake, Oriented x3 - Psychiatric Exam Psychiatric exam: Normal Affect, Normal Mood - Skin Skin Exam: Dry, Intact, Normal Color, Warm Assessment and Plan - Assessment and Plan (Free Text) Assessment: 57 year old male with a past medical history significant for HTN, HLD, GERD and BPH who presented with one day of nausea with associated NBNB vomiting and diffuse abdominal pain. CT Abdomen/Pelvis showed high-grade small bowel obstruction with transition in the distal ileum in the right lower quadrant. NGT has not needed to be reinserted as the patient has had no further vomiting. He is improving clinically. Plan: 1. SBO - no vomiting overnight, abdominal exam improving, persistent nausea - No flatus but patient endorses loose BM x3 -CT Abdomen/Pelvis reviewed and discussed with patient -trial of CLD today -Continue Normal Saline at 100mls/hr -Continue Morphine 1q4 IVP PRN for severe pain -Continue Zofran 4q4 IVP PRN for N/V -Continue Colace 100mg PO TID -will attempt to place NGT again if emesis recurs/continues -Surgery consulted, all recommendations appreciated 2. History of HTN -Vasotec PRN -Holding home PO medications GI Prophylaxis: Protonix DVT Prophylaxis: Heparin Patient seen and case discussed with attending, Dr. Deng Nunez, PGY 1 <Sourav Vilchis - Last Filed: 11/29/17 17:15> Objective - Vital Signs/Intake and Output Vital Signs (last 24 hours): Temp Pulse Resp BP Pulse Ox 99.2 F 90 19 140/95 H 95 11/29/17 16:36 11/29/17 16:36 11/29/17 16:36 11/29/17 16:36 11/29/17 16:36 - Medications Medications: Current Medications Enalaprilat (Vasotec Iv) 1.25 mg IVP Q6H PRN PRN Reason: Systolic Blood Pressure Heparin Sodium (Porcine) (Heparin) 5,000 units SC Q12 ANDRES; Protocol Last Admin: 11/29/17 09:22 Dose: 5,000 units Sodium Chloride (Sodium Chloride 0.9%) 1,000 mls @ 100 mls/hr IV .Q10H ANDRES Last Admin: 11/29/17 08:32 Dose: 100 mls/hr Morphine Sulfate (Morphine) 1 mg IVP Q4H PRN PRN Reason: Pain, severe (8-10) Last Admin: 11/28/17 15:45 Dose: 1 mg Ondansetron HCl (Zofran Inj) 4 mg IVP Q4H PRN PRN Reason: Nausea/Vomiting Last Admin: 11/26/17 19:59 Dose: 4 mg Vitamin A (Vitamin A & D Oint Ud Foilpak) 1 ea TOP Q2 PRN PRN Reason: Dry mouth - Labs Labs: 11/29/17 11:40 11/29/17 11:40 PT 13.2 SECONDS (9.4-12.5) H 11/27/17 06:30 INR 1.14 11/27/17 06:30 APTT 27.0 Seconds (25.1-36.5) 11/27/17 06:30 Attending/Attestation - Attestation I have personally seen and examined this patient.: Yes I have fully participated in the care of the patient.: Yes I have reviewed all pertinent clinical information, including history, physical exam and plan: Yes Notes (Text): 11/29/17 17:13 Attending note; Patient seen and examined with resident. Patient's by the bedside. Denied any nausea or vomiting. Had 3 loose bowel movement today which was normal in color. Patient is a 57-year-old male with past medical history significant for hypertension, hyperlipidemia, GERD, and BPH who presented to the emergency room with abdominal pain, nausea, vomiting. 1. Small bowel obstruction. S/P NGT removal. Currently no nausea or vomiting. Continue Zofran when necessary. Started on clear liquid diet. Monitor closely. Abdominal x-ray showed decreased bowel dilatation. Case discussed with surgery in detail . GI evaluation requested. Patient never had EGD or colonoscopy before. 2. Hypertension. Continue IV Vasotec when necessary. 3. GERD. Continue IV Protonix. 4. Hyperlipidemia. hold po medications for now. Upon discharge the patient will follow-up with Dr. Mckeon. Case discussed in detail with patient regarding current diagnosis and treatment plan. 11/29/17 17:14
--- NOTE | 2017-11-29 13:24 | RAD ---
Date of service: 11/29/2017 HISTORY: reassess sbo COMPARISON: 11/26/2017 FINDINGS: BOWEL: Mildly dilated loops of small bowel are seen. These have decreased in size and number since the prior exam. BONES: Normal. OTHER FINDINGS: None. IMPRESSION: Mildly dilated loops of small bowel are seen. These have decreased in size and number since the prior exam.
[2017-11-30] MEDS: Morphine 2 mg/ml ISec IVP PRN (02:15)
--- NOTE | 2017-11-30 06:31 | CP.PCM.CON ---
<De Carlisle - Last Filed: 11/30/17 09:40> History of Present Illness - History of Present Illness History of Present Illness: Pt is a 57 yo male with HTN, HLD, BPH, GERD and Hiatal Hernia who presented on 11/26 with abdominal pain. Pain was sharp, 10/10, progressive to the point of NB/NB emesis and abd distension. He states last BM/flatus were days prior. He states he normally moves his bowels at least daily or every other day and that they are typically brown or yellow. He states that his weight seems to be fluctuating up and down over the last year or so between 165-175 lbs. He states that he was told he had a hiatal hernia at least 10 years ago via an esophagram. He states that he sometimes feels full with decreased appetite. However, he states that he is able to keep food down and denies any melena, hematochezia, dysphagia, odynophagia or family history of GI problems. 12 point ROS negative other than stated above MHx: See above SurgHx: Back surgeries Meds: Reviewed in MAR FamHx: No GI problems SocHx: Denied x3 All: NKDA Past Patient History - Infectious Disease Hx of Infectious Diseases: None - Past Social History Smoking Status: Never Smoked - CARDIAC Hx Cardiac Disorders: Yes Hx Hypercholesterolemia: Yes Hx Hypertension: Yes - PULMONARY Hx Respiratory Disorders: No - NEUROLOGICAL Hx Neurological Disorder: No - HEENT Hx HEENT Problems: No - RENAL Hx Chronic Kidney Disease: No - ENDOCRINE/METABOLIC Hx Endocrine Disorders: No - HEMATOLOGICAL/ONCOLOGICAL Hx Blood Disorders: No - INTEGUMENTARY Hx Dermatological Problems: No - MUSCULOSKELETAL/RHEUMATOLOGICAL Hx Musculoskeletal Disorders: Yes (LAMINECTOMY) Hx Falls: Yes - GASTROINTESTINAL Hx Gastrointestinal Disorders: Yes (OBSTRUCTION TO DUODENUM 11-26-17) Hx Gastroesophageal Reflux: Yes Hx Ulcer: Yes (PUD) Other/Comment: SBO-DISTAL ILEUM IN RIGHT LOWER QUADRANT. - GENITOURINARY/GYNECOLOGICAL Hx Genitourinary Disorders: Yes Hx Prostate Problems: Yes (BPH) - PSYCHIATRIC Hx Psychophysiologic Disorder: No Hx Substance Use: No - SURGICAL HISTORY Hx Surgeries: Yes (LAMINECTOMY,TONSILLECTOMY.) Other/Comment: back surgery - ANESTHESIA Hx Anesthesia: Yes Hx Anesthesia Reactions: No Hx Malignant Hyperthermia: No Meds Allergies/Adverse Reactions: Allergies Allergy/AdvReac Type Severity Reaction Status Date / Time No Known Allergies Allergy Verified 11/26/17 16:22 - Medications Medications: Current Medications Enalaprilat (Vasotec Iv) 1.25 mg IVP Q6H PRN PRN Reason: Systolic Blood Pressure Heparin Sodium (Porcine) (Heparin) 5,000 units SC Q12 ANDRES; Protocol Last Admin: 11/29/17 22:15 Dose: 5,000 units Sodium Chloride (Sodium Chloride 0.9%) 1,000 mls @ 100 mls/hr IV .Q10H ANDRES Last Admin: 11/29/17 08:32 Dose: 100 mls/hr Morphine Sulfate (Morphine) 1 mg IVP Q4H PRN PRN Reason: Pain, severe (8-10) Last Admin: 11/30/17 02:15 Dose: 1 mg Ondansetron HCl (Zofran Inj) 4 mg IVP Q4H PRN PRN Reason: Nausea/Vomiting Last Admin: 11/26/17 19:59 Dose: 4 mg Vitamin A (Vitamin A & D Oint Ud Foilpak) 1 ea TOP Q2 PRN PRN Reason: Dry mouth Physical Exam - Constitutional Appears: Well, Non-toxic, No Acute Distress - Head Exam Head Exam: ATRAUMATIC, NORMAL INSPECTION - Eye Exam Eye Exam: EOMI. absent: Conjunctival injection, Scleral icterus - ENT Exam ENT Exam: Mucous Membranes Dry, Normal External Ear Exam. absent: Mucous Membranes Moist - Respiratory Exam Respiratory Exam: Clear to Auscultation Bilateral, NORMAL BREATHING PATTERN. absent: Accessory Muscle Use, Respiratory Distress - Cardiovascular Exam Cardiovascular Exam: REGULAR RHYTHM, RRR - GI/Abdominal Exam GI & Abdominal Exam: Distended (mildly), Normal Bowel Sounds, Soft, Tenderness (ttp in epigastrum w/o guarding). absent: Bruit, Diminished Bowel Sounds, Firm, Guarding, Hernia, Mass, Organomegaly, Pulsatile Mass, Rebound, Rigid - Rectal Exam Rectal Exam: Deferred - Extremities Exam Extremities exam: Positive for: normal inspection. Negative for: pedal edema - Neurological Exam Neurological exam: Alert, CN II-XII Intact - Psychiatric Exam Psychiatric exam: Normal Affect, Normal Mood - Skin Skin Exam: Dry, Normal Color, Warm Results - Vital Signs Recent Vital Signs: Last Vital Signs Temp 99.2 F 11/29/17 16:36 Pulse 90 11/29/17 16:36 Resp 19 11/29/17 16:36 BP 140/95 H 11/29/17 16:36 Pulse Ox 95 11/29/17 16:36 - Labs Result Diagrams: 11/29/17 11:40 11/30/17 06:15 Labs: Laboratory Results - last 24 hr 11/29/17 11/29/17 11:40 11:40 WBC 4.0 L D RBC 4.93 Hgb 13.4 L Hct 41.0 L MCV 83.2 MCH 27.2 MCHC 32.7 RDW 13.5 Plt Count 235 MPV 9.1 Gran % 44.9 L Lymph % (Auto) 32.3 [place] % (Auto) 20.1 H Eos % (Auto) 2.2 Baso % (Auto) 0.5 Gran # 1.81 Lymph # (Auto) 1.3 [place] # (Auto) 0.8 H Eos # (Auto) 0.1 Baso # (Auto) 0.02 Neutrophils % (Manual) 40 L Band Neutrophils % 4 H Lymphocytes % (Manual) 39 H Atypical Lymphs % 3 H Monocytes % (Manual) 13 H Eosinophils % (Manual) 1 Sodium 140 Potassium 3.5 L Chloride 104 Carbon Dioxide 25 Anion Gap 15 BUN 19 Creatinine 0.9 Est GFR ( Amer) > 60 Est GFR (Non-Af Amer) > 60 Random Glucose 90 Calcium 8.8 Phosphorus 2.7 Magnesium 2.3 H Total Bilirubin 0.5 AST 28 ALT 34 Alkaline Phosphatase 53 Total Protein 7.0 Albumin 3.8 Globulin 3.2 Albumin/Globulin Ratio 1.2 Assessment & Plan - Assessment and Plan (Free Text) Assessment: # SBO: Resolving. Pt already reporting bowel movement and flatus. Still with some mild abd distension, decreased ambrocio and early satiety but otherwise seems to be improving without any red flag signs/symptoms. However, it is somewhat concerning that he has an SBO without history of intraabdominal surgeries as well as possible thickening vs mass at TI. Furthermore, given that he is > 50 yo, he should get Colonoscopy done to further evaluate. # GERD, h/o Hiatal Hernia: On PPI as OP. Given report of early satiety and long standing GERD, would benefit from EGD as OP. Plan: - Cont suportive care as you are with IVF and electrolytes supplementation - Liquid diet, ADAT per primary/surgery - Outpatient EGD + CSPY as long as tolerating diet Thank you for the consult. Will cont to follow. Pt seen and examined with Dr. Rios. Please see attestation for further recs/changes. <Juan Rios - Last Filed: 11/30/17 12:49> Meds - Medications Medications: Current Medications Enalaprilat (Vasotec Iv) 1.25 mg IVP Q6H PRN PRN Reason: Systolic Blood Pressure Heparin Sodium (Porcine) (Heparin) 5,000 units SC Q12 ANDRES; Protocol Last Admin: 11/30/17 09:00 Dose: 5,000 units Sodium Chloride (Sodium Chloride 0.9%) 1,000 mls @ 100 mls/hr IV .Q10H ANDRES Last Admin: 11/29/17 08:32 Dose: 100 mls/hr Ondansetron HCl (Zofran Inj) 4 mg IVP Q4H PRN PRN Reason: Nausea/Vomiting Last Admin: 11/26/17 19:59 Dose: 4 mg Vitamin A (Vitamin A & D Oint Ud Foilpak) 1 ea TOP Q2 PRN PRN Reason: Dry mouth Results - Vital Signs Recent Vital Signs: Last Vital Signs Temp 98.1 F 11/30/17 06:00 Pulse 74 11/30/17 06:00 Resp 18 11/30/17 06:00 BP 140/88 11/30/17 06:00 Pulse Ox 97 11/30/17 06:00 - Labs Result Diagrams: 11/30/17 11:15 11/30/17 10:20 Labs: Laboratory Results - last 24 hr 11/30/17 11/30/17 11/30/17 06:15 10:20 11:15 WBC 4.4 L RBC 4.73 Hgb 13.0 L Hct 39.3 L MCV 83.1 MCH 27.5 MCHC 33.1 RDW 13.3 Plt Count 225 MPV 8.8 Gran % 47.3 L Lymph % (Auto) 26.9 [place] % (Auto) 22.8 H Eos % (Auto) 2.3 Baso % (Auto) 0.7 Gran # 2.07 Lymph # (Auto) 1.2 [place] # (Auto) 1.0 H Eos # (Auto) 0.1 Baso # (Auto) 0.03 Sodium 138 140 Potassium 3.4 L 4.1 Chloride 106 108 H Carbon Dioxide 25 22 Anion Gap 11 14 BUN 14 15 Creatinine 0.9 0.8 Est GFR ( Amer) > 60 > 60 Est GFR (Non-Af Amer) > 60 > 60 Random Glucose 90 114 H Calcium 8.2 L 8.7 Total Bilirubin 0.4 0.5 AST 30 32 ALT 40 31 Alkaline Phosphatase 47 48 Total Protein 6.4 7.0 Albumin 3.4 3.7 Globulin 3.0 3.2 Albumin/Globulin Ratio 1.1 1.2 Attending/Attestation - Attestation I have personally seen and examined this patient.: Yes I have fully participated in the care of the patient.: Yes I have reviewed all pertinent clinical information: Yes Notes (Text): 11/30/17 12:48 This is a 57 yr old est[place] male with resolving SBO,reporting bowel movement and flatus. Still with some mild abd distension, decreased ambrocio and early satiety but otherwise seems to be improving without any red flag signs/symptoms. Due to unknown etiology of SBO he should get outpatient EGD/ colonoscopy in few weeks. Diet as per surgical sevrice. Tolerating liquid diet today w/o s/s of obstruction.
[2017-11-30 07:12] LABS: ALB/GLOB RATIO 1.1 (1.1-1.8); ALBUMIN 3.4 g/dL (3.0-4.8); ALT/SGPT 40 U/L (7-56); AST/SGOT 30 U/L (17-59); BLOOD UREA NITROGEN 14 mg/dL (7-21); CALCIUM 8.2 mg/dL (8.4-10.5); GFR NON-AFRICAN AMERICAN > 60
[2017-11-30] MEDS ORDERED: Potassium Chloride 40 mEq/30 ml LIQ UD PO STA (07:15)
[2017-11-30 10:54] LABS: ALB/GLOB RATIO 1.2 (1.1-1.8); ALBUMIN 3.7 g/dL (3.0-4.8); ALT/SGPT 31 U/L (7-56); AST/SGOT 32 U/L (17-59); BLOOD UREA NITROGEN 15 mg/dL (7-21); CALCIUM 8.7 mg/dL (8.4-10.5); GFR NON-AFRICAN AMERICAN > 60
[2017-11-30 11:26] LABS: BASO # 0.03 K/mm3 (0.0-2.0); BASO % 0.7 % (0.0-3.0); EOS # 0.1 (0.0-0.7); EOS % 2.3 % (1.5-5.0); GRAN # 2.07 (1.4-6.5); GRAN % 47.3 % (50.0-68.0); LYMPH # 1.2 (1.2-3.4); LYMPH % 26.9 % (22.0-35.0); MEAN CELL VOLUME 83.1 fl (80.0-105.0); MEAN CORPUSCULAR HEMOGLOBIN 27.5 pg (25.0-35.0); MEAN CORPUSCULAR HGB CONC 33.1 g/dl (31.0-37.0); MEAN PLATELET VOLUME 8.8 fl (7.0-11.0); MONO % 22.8 % (1.0-6.0); RBC 4.73 10^6/uL (3.5-6.1); RED CELL DISTRIBUTION WIDTH 13.3 % (11.5-14.5); WHITE BLOOD COUNT 4.4 10^3/ul (4.5-11.0)
--- NOTE | 2017-11-30 11:51 | CP.PCM.PN ---
Subjective - Date & Time of Evaluation Date of Evaluation: 11/30/17 Time of Evaluation: 11:48 - Subjective Subjective: Surgery: Dr. Alvarez Patient reports feeling the same. He denies n/v, complains of distention. Has been OOB ambulating. He continues to complain of diarrhea. No solid bowel movements since admission. Objective - Vital Signs/Intake and Output Vital Signs (last 24 hours): Temp Pulse Resp BP Pulse Ox 98.1 F 74 18 140/88 97 11/30/17 06:00 11/30/17 06:00 11/30/17 06:00 11/30/17 06:00 11/30/17 06:00 - Medications Medications: Current Medications Enalaprilat (Vasotec Iv) 1.25 mg IVP Q6H PRN PRN Reason: Systolic Blood Pressure Heparin Sodium (Porcine) (Heparin) 5,000 units SC Q12 ANDRES; Protocol Last Admin: 11/30/17 09:00 Dose: 5,000 units Sodium Chloride (Sodium Chloride 0.9%) 1,000 mls @ 100 mls/hr IV .Q10H ANDRES Last Admin: 11/29/17 08:32 Dose: 100 mls/hr Ondansetron HCl (Zofran Inj) 4 mg IVP Q4H PRN PRN Reason: Nausea/Vomiting Last Admin: 11/26/17 19:59 Dose: 4 mg Vitamin A (Vitamin A & D Oint Ud Foilpak) 1 ea TOP Q2 PRN PRN Reason: Dry mouth - Labs Labs: 11/30/17 11:15 11/30/17 10:20 PT 13.2 SECONDS (9.4-12.5) H 11/27/17 06:30 INR 1.14 11/27/17 06:30 APTT 27.0 Seconds (25.1-36.5) 11/27/17 06:30 - Constitutional Appears: Non-toxic, No Acute Distress - Head Exam Head Exam: ATRAUMATIC, NORMOCEPHALIC - Eye Exam Eye Exam: EOMI, Normal appearance - ENT Exam ENT Exam: Mucous Membranes Moist - Respiratory Exam Respiratory Exam: NORMAL BREATHING PATTERN. absent: Respiratory Distress - Cardiovascular Exam Cardiovascular Exam: REGULAR RHYTHM. absent: Tachycardia - GI/Abdominal Exam GI & Abdominal Exam: Distended, Soft. absent: Tenderness, Rebound - Neurological Exam Neurological Exam: Alert, Awake - Psychiatric Exam Psychiatric exam: Normal Affect, Normal Mood - Skin Skin Exam: Dry, Warm Assessment and Plan - Assessment and Plan (Free Text) Assessment: 57 y/o male with unresolving SBO Plan: -diarrhea could be bypassing area of obstruction, no solid BM yet -recommend small bowel series to see if contrast passes into colon -if no contrast passes, may need scopes as inpatient -replace electrolytes prn -cont liquid diet -patient seen and examined with Dr. [place]4
--- NOTE | 2017-11-30 13:18 | CP.PCM.PN ---
<Tereso La - Last Filed: 11/30/17 13:15> Subjective - Date & Time of Evaluation Date of Evaluation: 11/30/17 Time of Evaluation: 07:10 - Subjective Subjective: Tereso La DO PGY-1, Internal Medicine Resident. Hospitalist Progress Note Patient seen and examined at bedside. Patient is sitting in chair, awake and oriented. Patient still on clear liquid diet, had multiple bouts of diarrhe, . P atient denied fever, vomiting, chills, palpitations, headache Objective - Vital Signs/Intake and Output Vital Signs (last 24 hours): Temp Pulse Resp BP Pulse Ox 98.1 F 74 18 140/88 97 11/30/17 06:00 11/30/17 06:00 11/30/17 06:00 11/30/17 06:00 11/30/17 06:00 - Medications Medications: Current Medications Enalaprilat (Vasotec Iv) 1.25 mg IVP Q6H PRN PRN Reason: Systolic Blood Pressure Heparin Sodium (Porcine) (Heparin) 5,000 units SC Q12 ANDRES; Protocol Last Admin: 11/30/17 09:00 Dose: 5,000 units Sodium Chloride (Sodium Chloride 0.9%) 1,000 mls @ 100 mls/hr IV .Q10H ANDRES Last Admin: 11/29/17 08:32 Dose: 100 mls/hr Ondansetron HCl (Zofran Inj) 4 mg IVP Q4H PRN PRN Reason: Nausea/Vomiting Last Admin: 11/26/17 19:59 Dose: 4 mg Vitamin A (Vitamin A & D Oint Ud Foilpak) 1 ea TOP Q2 PRN PRN Reason: Dry mouth - Labs Labs: 11/30/17 11:15 11/30/17 10:20 PT 13.2 SECONDS (9.4-12.5) H 11/27/17 06:30 INR 1.14 11/27/17 06:30 APTT 27.0 Seconds (25.1-36.5) 11/27/17 06:30 - Head Exam Head Exam: ATRAUMATIC, NORMAL INSPECTION, NORMOCEPHALIC - Eye Exam Eye Exam: Normal appearance, PERRL Pupil Exam: NORMAL ACCOMODATION - ENT Exam ENT Exam: Mucous Membranes Moist, Normal Oropharynx - Neck Exam Neck Exam: Full ROM, Normal Inspection - Cardiovascular Exam Cardiovascular Exam: REGULAR RHYTHM, +S1, +S2. absent: Murmur - GI/Abdominal Exam GI & Abdominal Exam: Soft, Hyperactive Bowel Sounds. absent: Tenderness - Extremities Exam Extremities Exam: Full ROM, Normal Capillary Refill, Normal Inspection. absent: Joint Swelling, Pedal Edema - Back Exam Back Exam: NORMAL INSPECTION - Neurological Exam Neurological Exam: Alert, Awake, CN II-XII Intact, Normal Gait, Oriented x3 - Psychiatric Exam Psychiatric exam: Normal Affect, Normal Mood - Skin Skin Exam: Dry, Intact, Normal Color, Warm Assessment and Plan - Assessment and Plan (Free Text) Assessment: 57 year old male with a past medical history significant for HTN, HLD, GERD and BPH who presented with one day of nausea with associated NBNB vomiting and diffuse abdominal pain. CT Abdomen/Pelvis showed high-grade SBO with transition in the distal ileum in the RLQ. s/p NGT removal, having diarrhea, on clear liquid diet Plan: SBO CT Abdomen/Pelvis reviewed and discussed with patient s/p NGT removal. no vomiting for now clear liquid Diet continue IVF@ 100mls/hr continue Morphine 1q4 IVP PRN for severe pain continue Zofran 4q4 IVP PRN for N/V continue Colace 100mg PO TID lytes repleted as per surgery note: small bowel series to see if contrast passes into colon . i f no contrast passes, may need scopes as inpatient HTN Vasotec q6 prn holding home meds GI Prophylaxis: Protonix DVT Prophylaxis: Heparin Case reviewed and plan discussed with attending Dr. Vilchis <Sourav Vilchis - Last Filed: 12/02/17 14:05> Objective - Vital Signs/Intake and Output Vital Signs (last 24 hours): Temp Pulse Resp BP Pulse Ox 97.5 F L 66 18 148/82 98 12/02/17 06:00 12/02/17 10:00 12/02/17 10:00 12/02/17 10:00 12/02/17 06:00 - Labs Labs: 12/02/17 07:30 12/02/17 07:30 PT 13.2 SECONDS (9.4-12.5) H 11/27/17 06:30 INR 1.14 11/27/17 06:30 APTT 27.0 Seconds (25.1-36.5) 11/27/17 06:30 Attending/Attestation - Attestation I have personally seen and examined this patient.: Yes I have fully participated in the care of the patient.: Yes I have reviewed all pertinent clinical information, including history, physical exam and plan: Yes Notes (Text): 12/02/17 14:04 Attending note; Patient seen and examined with resident. Patient's by the bedside. denies any nausea, vomiting. Tolerating a clear diet. Seen by surgery. Small bowel series ordered. Patient is a 57-year-old male with past medical history significant for hypertension, hyperlipidemia, GERD, and BPH who presented to the emergency room with abdominal pain, nausea, vomiting. 1. Small bowel obstruction. S/P NGT removal. Currently no nausea or vomiting. Continue Zofran when necessary. Started on clear liquid diet. Monitor closely. Abdominal x-ray showed decreased bowel dilatation. small bowel series ordered. GI evaluation requested. Patient never had EGD or colonoscopy before. 2. Hypertension. Continue IV Vasotec when necessary. 3. GERD. Continue IV Protonix. 4. Hyperlipidemia. hold po medications for now. Upon discharge the patient will follow-up with Dr. Mckeon. Case discussed in detail with patient regarding current diagnosis and treatment plan.
--- NOTE | 2017-12-01 09:05 | CP.PCM.PN ---
Subjective - Date & Time of Evaluation Date of Evaluation: 12/01/17 Time of Evaluation: 09:02 - Subjective Subjective: General Surgery Progress Note for Dr. Alvarez This 57M was seen and examined this AM at bedside no acute events overnight. He was NPO since 9pm yesterday. He reports 3 loose bowel movemnets denies any vomiting. He is ambulating. We discussed plans for today for upper GI study. Objective - Vital Signs/Intake and Output Vital Signs (last 24 hours): Temp Pulse Resp BP Pulse Ox 97.6 F 74 19 134/90 98 11/30/17 18:00 11/30/17 06:00 11/30/17 18:00 11/30/17 18:00 11/30/17 18:00 Intake and Output: 12/01/17 12/01/17 06:59 18:59 Intake Total 1200 Balance 1200 - Medications Medications: Current Medications Enalaprilat (Vasotec Iv) 1.25 mg IVP Q6H PRN PRN Reason: Systolic Blood Pressure Heparin Sodium (Porcine) (Heparin) 5,000 units SC Q12 ANDRES; Protocol Last Admin: 11/30/17 23:00 Dose: 5,000 units Sodium Chloride (Sodium Chloride 0.9%) 1,000 mls @ 100 mls/hr IV .Q10H ANDRES Last Admin: 11/29/17 08:32 Dose: 100 mls/hr Ondansetron HCl (Zofran Inj) 4 mg IVP Q4H PRN PRN Reason: Nausea/Vomiting Last Admin: 11/26/17 19:59 Dose: 4 mg Pantoprazole Sodium (Protonix Inj) 40 mg IVP DAILY [facility] Vitamin A (Vitamin A & D Oint Ud Foilpak) 1 ea TOP Q2 PRN PRN Reason: Dry mouth - Labs Labs: 11/30/17 11:15 11/30/17 10:20 PT 13.2 SECONDS (9.4-12.5) H 11/27/17 06:30 INR 1.14 11/27/17 06:30 APTT 27.0 Seconds (25.1-36.5) 11/27/17 06:30 - Constitutional Appears: Non-toxic, No Acute Distress - Head Exam Head Exam: ATRAUMATIC, NORMOCEPHALIC - Eye Exam Eye Exam: EOMI, Normal appearance - ENT Exam ENT Exam: Mucous Membranes Moist - Respiratory Exam Respiratory Exam: NORMAL BREATHING PATTERN. absent: Respiratory Distress - Cardiovascular Exam Cardiovascular Exam: REGULAR RHYTHM. absent: Tachycardia - GI/Abdominal Exam GI & Abdominal Exam: Distended, Soft. absent: Tenderness, Rebound - Neurological Exam Neurological Exam: Alert, Awake - Psychiatric Exam Psychiatric exam: Normal Affect, Normal Mood - Skin Skin Exam: Dry, Warm Assessment and Plan - Assessment and Plan (Free Text) Assessment: 57 y/o male with SBO Continues to have diarrhea. Plan: -F/U small bowel series -if no contrast passes, may need scopes as inpatient -replace electrolytes prn -cont liquid diet Further recs per Dr. Antonio Curry PGY3
[2017-12-01 09:06] LABS: BASO # 0.07 K/mm3 (0.0-2.0); BASO % 1.2 % (0.0-3.0); EOS # 0.2 (0.0-0.7); EOS % 2.8 % (1.5-5.0); GRAN # 2.79 (1.4-6.5); HEMOGLOBIN 13.8 g/dL (14.0-18.0); LYMPH % 35.4 % (22.0-35.0); MEAN CELL VOLUME 82.7 fl (80.0-105.0); MEAN CORPUSCULAR HEMOGLOBIN 27.7 pg (25.0-35.0); MEAN CORPUSCULAR HGB CONC 33.5 g/dl (31.0-37.0); MEAN PLATELET VOLUME 8.9 fl (7.0-11.0); MONO # 0.7 (0.1-0.6); MONO % 11.6 % (1.0-6.0); RBC 4.98 10^6/uL (3.5-6.1); RED CELL DISTRIBUTION WIDTH 13.4 % (11.5-14.5); WHITE BLOOD COUNT 5.7 10^3/ul (4.5-11.0)
[2017-12-01 09:16] LABS: ALB/GLOB RATIO 1.2 (1.1-1.8); ALBUMIN 3.9 g/dL (3.0-4.8); ALT/SGPT 55 U/L (7-56); AST/SGOT 46 U/L (17-59); BLOOD UREA NITROGEN 10 mg/dL (7-21); CALCIUM 9.1 mg/dL (8.4-10.5); GFR NON-AFRICAN AMERICAN > 60
[2017-12-01] MEDS ORDERED: Iohexol 240 (50 ml) ONE (09:18)
--- NOTE | 2017-12-01 12:22 | RAD ---
Date of service: 12/01/2017 PROCEDURE: Small bowel series HISTORY: unresolving SOB COMPARISON: TECHNIQUE: Single contrast study FINDINGS: The supply chain vice president film shows a small segment of dilated small bowel on the left side. The stomach and duodenum are unremarkable. There is mild dilatation of the small bowel. There is no significant thickening of the mucosal folds. There is no focal stenosis or obstruction. Contrast reaches the colon within 2 hr and 30 min. Contrast extends through the colon and into the rectum on the 2 hr and 30 min film. IMPRESSION: Mild dilatation of small bowel. No focal obstruction or stenosis
--- NOTE | 2017-12-01 12:39 | CP.PCM.PN ---
<Tereso La - Last Filed: 12/01/17 18:44> Subjective - Date & Time of Evaluation Date of Evaluation: 12/01/17 Time of Evaluation: 06:10 - Subjective Subjective: Tereso La DO PGY-1, Internal Medicine Resident. Hospitalist Progress Note Patient seen and examined at bedside. Patient is sitting in chair, awake and oriented. Patient NPO for GI series but was tolerating clear liquid prior to jovany t , had one episode of diarrhea, abdominal pain improving . Patient denied fever, vomiting, chills, palpitations, headache Objective - Vital Signs/Intake and Output Vital Signs (last 24 hours): Temp Pulse Resp BP Pulse Ox 97.9 F 72 19 149/95 H 97 12/01/17 06:00 12/01/17 06:00 12/01/17 06:00 12/01/17 06:00 12/01/17 06:00 Intake and Output: 12/01/17 12/01/17 06:59 18:59 Intake Total 1200 Balance 1200 - Medications Medications: Current Medications Enalaprilat (Vasotec Iv) 1.25 mg IVP Q6H PRN PRN Reason: Systolic Blood Pressure Heparin Sodium (Porcine) (Heparin) 5,000 units SC Q12 ANDRES; Protocol Last Admin: 11/30/17 23:00 Dose: 5,000 units Sodium Chloride (Sodium Chloride 0.9%) 1,000 mls @ 100 mls/hr IV .Q10H ANDRES Last Admin: 11/29/17 08:32 Dose: 100 mls/hr Ondansetron HCl (Zofran Inj) 4 mg IVP Q4H PRN PRN Reason: Nausea/Vomiting Last Admin: 11/26/17 19:59 Dose: 4 mg Pantoprazole Sodium (Protonix Inj) 40 mg IVP DAILY [facility] Vitamin A (Vitamin A & D Oint Ud Foilpak) 1 ea TOP Q2 PRN PRN Reason: Dry mouth - Labs Labs: 12/01/17 09:00 12/01/17 09:00 PT 13.2 SECONDS (9.4-12.5) H 11/27/17 06:30 INR 1.14 11/27/17 06:30 APTT 27.0 Seconds (25.1-36.5) 11/27/17 06:30 - Additional Findings Additional findings: - Head Exam Head Exam: ATRAUMATIC, NORMAL INSPECTION, NORMOCEPHALIC - Eye Exam Eye Exam: Normal appearance, PERRL Pupil Exam: NORMAL ACCOMODATION - ENT Exam ENT Exam: Mucous Membranes Moist, Normal Oropharynx - Neck Exam Neck Exam: Full ROM, Normal Inspection - Cardiovascular Exam Cardiovascular Exam: REGULAR RHYTHM, +S1, +S2. absent: Murmur - GI/Abdominal Exam GI & Abdominal Exam: Soft, Hyperactive Bowel Sounds. absent: Tenderness - Extremities Exam Extremities Exam: Full ROM, Normal Capillary Refill, Normal Inspection. absent: Joint Swelling, Pedal Edema - Back Exam Back Exam: NORMAL INSPECTION - Neurological Exam Neurological Exam: Alert, Awake, CN II-XII Intact, Normal Gait, Oriented x3 - Psychiatric Exam Psychiatric exam: Normal Affect, Normal Mood - Skin Skin Exam: Dry, Intact, Normal Color, Warm Assessment and Plan - Assessment and Plan (Free Text) Assessment: 57 year old male with a past medical history significant for HTN, HLD, GERD and BPH who presented with one day of nausea with associated NBNB vomiting and diffuse abdominal pain. CT Abdomen/Pelvis showed high-grade SBO with transition in the distal ileum in the RLQ. s/p NGT removal, having diarrhea, on clear l iquid diet Plan: SBO-resolving CT Abdomen/Pelvis reviewed and discussed with patient s/p NGT removal. vomiting resolved clear liquid Diet continue IVF@ 100mls/hr continue Morphine 1q4 IVP PRN for severe pain continue Zofran 4q4 IVP PRN for N/V continue Colace 100mg PO TID lytes repleted as needed GI series: no obstruction nor stenosis As per GI consult: EGD as OP given h/o hiatal hernia and long standing GERD. Continue PPI. pt is >50, colonscopy as OP. HTN Vasotec q6 prn holding home meds GI Prophylaxis: Protonix DVT Prophylaxis: Heparin Case reviewed and plan discussed with attending Dr. Vilchis <Sourav Vilchis - Last Filed: 12/02/17 14:11> Objective - Vital Signs/Intake and Output Vital Signs (last 24 hours): Temp Pulse Resp BP Pulse Ox 97.5 F L 66 18 148/82 98 12/02/17 06:00 12/02/17 10:00 12/02/17 10:00 12/02/17 10:00 12/02/17 06:00 - Labs Labs: 12/02/17 07:30 12/02/17 07:30 PT 13.2 SECONDS (9.4-12.5) H 11/27/17 06:30 INR 1.14 11/27/17 06:30 APTT 27.0 Seconds (25.1-36.5) 11/27/17 06:30 Attending/Attestation - Attestation I have personally seen and examined this patient.: Yes I have fully participated in the care of the patient.: Yes I have reviewed all pertinent clinical information, including history, physical exam and plan: Yes Notes (Text): 12/02/17 14:05 Attending note; Patient seen and examined with resident. Patient's by the bedside. denies any nausea, vomiting. small bowel series is negative for obstruction. Started on diet. Patient is a 57-year-old male with past medical history significant for hypertension, hyperlipidemia, GERD, and BPH who presented to the emergency room with abdominal pain, nausea, vomiting. 1. Small bowel obstruction. S/P NGT removal. Currently no nausea or vomiting. Abdominal x-ray showed decreased bowel dilatation. small bowel series is negative for obstruction. started on diet. Monitor closely. GI evaluation appreciated. outpatient EGD and colonoscopy recommended. 2. hypertension; patient can resume Norvasc and Cozaar home Medications. 3.BPH; continue Flomax at home. 4. Hypercholesterolemia; continue pravastatin at home. Upon discharge the patient will follow-up with Dr. Mckeon. Case discussed in detail with patient regarding current diagnosis and treatment plan.
--- NOTE | 2017-12-01 12:45 | CP.PCM.PN ---
<De Carlisle - Last Filed: 12/01/17 12:42> Subjective - Date & Time of Evaluation Date of Evaluation: 12/01/17 Time of Evaluation: 07:30 - Subjective Subjective: PGY-4 GI Fellow Prog Note Pt lying in bed when seen this AM. States was tolerating diet yesterday prior to being NPO for GI series. States abd pain still there but improved from day prior. Still passing gas and loose BMs. 5 point ROS negative other than stated above Objective - Vital Signs/Intake and Output Vital Signs (last 24 hours): Temp Pulse Resp BP Pulse Ox 97.9 F 72 19 149/95 H 97 12/01/17 06:00 12/01/17 06:00 12/01/17 06:00 12/01/17 06:00 12/01/17 06:00 Intake and Output: 12/01/17 12/01/17 06:59 18:59 Intake Total 1200 Balance 1200 - Medications Medications: Current Medications Enalaprilat (Vasotec Iv) 1.25 mg IVP Q6H PRN PRN Reason: Systolic Blood Pressure Heparin Sodium (Porcine) (Heparin) 5,000 units SC Q12 ANDRES; Protocol Last Admin: 11/30/17 23:00 Dose: 5,000 units Sodium Chloride (Sodium Chloride 0.9%) 1,000 mls @ 100 mls/hr IV .Q10H ANDRES Last Admin: 11/29/17 08:32 Dose: 100 mls/hr Ondansetron HCl (Zofran Inj) 4 mg IVP Q4H PRN PRN Reason: Nausea/Vomiting Last Admin: 11/26/17 19:59 Dose: 4 mg Pantoprazole Sodium (Protonix Inj) 40 mg IVP DAILY [facility] Vitamin A (Vitamin A & D Oint Ud Foilpak) 1 ea TOP Q2 PRN PRN Reason: Dry mouth - Labs Labs: 12/01/17 09:00 12/01/17 09:00 PT 13.2 SECONDS (9.4-12.5) H 11/27/17 06:30 INR 1.14 11/27/17 06:30 APTT 27.0 Seconds (25.1-36.5) 11/27/17 06:30 - Constitutional Appears: Well, Non-toxic, No Acute Distress - Head Exam Head Exam: ATRAUMATIC, NORMAL INSPECTION - Eye Exam Eye Exam: EOMI. absent: Conjunctival injection, Scleral icterus - ENT Exam ENT Exam: Mucous Membranes Moist. absent: Mucous Membranes Dry, Normal External Ear Exam - Respiratory Exam Respiratory Exam: Clear to Ausculation Bilateral, NORMAL BREATHING PATTERN - GI/Abdominal Exam GI & Abdominal Exam: Distended (mildly), Soft, Tenderness (mildly ttp w/o guarding in epigastrum), Normal Bowel Sounds. absent: Bruit, Firm, Guarding, Rigid, Hypoactive Bowel Sounds, Mass, Organomegaly, Pulsatile Mass, Rebound Assessment and Plan - Assessment and Plan (Free Text) Assessment: # SBO: Resolving. Pt already reporting bowel movement and flatus. Still with some mild abd distension, decreased ambrocio and early satiety but otherwise seems to be improving without any red flag signs/symptoms. However, it is somewhat concerning that he has an SBO without history of intraabdominal surgeries as well as possible thickening vs mass at TI. Furthermore, given that he is > 50 yo, he should get Colonoscopy done to further evaluate. GI serious without obstruction nor stenosis 12/01/17. # GERD, h/o Hiatal Hernia: On PPI as OP. Given report of early satiety and long standing GERD, would benefit from EGD as OP. Plan: - Cont suportive care as you are with IVF and electrolytes supplementation - Liquid diet, ADAT per primary/surgery - Outpatient EGD + CSPY Thank you for the consult. Will sign off. Please page if questions. Pt discussed with Dr. Rios. Please see attestation for further recs/changes. <Juan Rios - Last Filed: 12/01/17 13:15> Objective - Vital Signs/Intake and Output Vital Signs (last 24 hours): Temp Pulse Resp BP Pulse Ox 97.9 F 72 19 149/95 H 97 12/01/17 06:00 12/01/17 06:00 12/01/17 06:00 12/01/17 06:00 12/01/17 06:00 Intake and Output: 12/01/17 12/01/17 06:59 18:59 Intake Total 1200 Balance 1200 - Medications Medications: Current Medications Enalaprilat (Vasotec Iv) 1.25 mg IVP Q6H PRN PRN Reason: Systolic Blood Pressure Heparin Sodium (Porcine) (Heparin) 5,000 units SC Q12 ANDRES; Protocol Last Admin: 11/30/17 23:00 Dose: 5,000 units Sodium Chloride (Sodium Chloride 0.9%) 1,000 mls @ 100 mls/hr IV .Q10H ANDRES Last Admin: 11/29/17 08:32 Dose: 100 mls/hr Ondansetron HCl (Zofran Inj) 4 mg IVP Q4H PRN PRN Reason: Nausea/Vomiting Last Admin: 11/26/17 19:59 Dose: 4 mg Pantoprazole Sodium (Protonix Inj) 40 mg IVP DAILY [facility]RES Vitamin A (Vitamin A & D Oint Ud Foilpak) 1 ea TOP Q2 PRN PRN Reason: Dry mouth - Labs Labs: 12/01/17 09:00 12/01/17 09:00 PT 13.2 SECONDS (9.4-12.5) H 11/27/17 06:30 INR 1.14 11/27/17 06:30 APTT 27.0 Seconds (25.1-36.5) 11/27/17 06:30 Attending/Attestation - Attestation I have personally seen and examined this patient.: Yes I have fully participated in the care of the patient.: Yes I have reviewed all pertinent clinical information, including history, physical exam and plan: Yes Notes (Text): 12/01/17 13:13 This is a 57 yr old [place] male with resolving SBO, reporting bowel movement and flatus. Small bowel series images reviewed- contrast passing through the bowel without any obstruction or stenosis. Able to tolerate diet without pain. Due to unknown etiology of SBO he should get outpatient EGD/ colonoscopy in few weeks. Diet as per surgical sevrice. Will sign off now. Thank you for letting us participate in the care of our patient
[2017-12-01] MEDS: Sodium Chloride 0.9% 1,000 ML IV SCH (17:02)
[2017-12-02 08:26] LABS: BASO # 0.07 K/mm3 (0.0-2.0); BASO % 1.1 % (0.0-3.0); EOS # 0.2 (0.0-0.7); EOS % 2.8 % (1.5-5.0); GRAN # 3.41 (1.4-6.5); GRAN % 53.3 % (50.0-68.0); HEMOGLOBIN 13.3 g/dL (14.0-18.0); LYMPH # 1.9 (1.2-3.4); LYMPH % 30.4 % (22.0-35.0); MEAN CELL VOLUME 81.8 fl (80.0-105.0); MEAN CORPUSCULAR HEMOGLOBIN 26.9 pg (25.0-35.0); MEAN CORPUSCULAR HGB CONC 32.9 g/dl (31.0-37.0); MEAN PLATELET VOLUME 9.3 fl (7.0-11.0); MONO # 0.8 (0.1-0.6); MONO % 12.4 % (1.0-6.0); RBC 4.94 10^6/uL (3.5-6.1); RED CELL DISTRIBUTION WIDTH 13.3 % (11.5-14.5); WHITE BLOOD COUNT 6.4 10^3/ul (4.5-11.0)
[2017-12-02 08:32] LABS: ALBUMIN 3.5 g/dL (3.0-4.8); BLOOD UREA NITROGEN 13 mg/dL (7-21); CALCIUM 9.1 mg/dL (8.4-10.5); GFR NON-AFRICAN AMERICAN > 60
[2017-12-02 08:33] LABS: ALB/GLOB RATIO 1.1 (1.1-1.8); ALT/SGPT 67 U/L (7-56); AST/SGOT 45 U/L (17-59)
[2017-12-02] MEDS: Sodium Chloride 0.9% 1,000 ML IV SCH (09:43)
[2017-12-02 09:45] VITALS: TEMP 97.5; O2SAT 98
[2017-12-02 11:16] VITALS: BP 148/82; PULSE 66; RESP 18
--- NOTE | 2017-12-02 13:35 | CP.PCM.DIS ---
<Tereso La - Last Filed: 12/02/17 14:52> Provider - Provider Date of Admission: 11/26/17 13:28 Attending physician: Sourav Vilchis MD Primary care physician: Kelly Michael MD Consults: GI SURGERY Time Spent in preparation of Discharge (in minutes): 45 Hospital Course - Lab Results Lab Results: Micro Results 11/26/17 10:20 Blood-Venous Blood Culture - Final NO GROWTH AFTER 5 DAYS 11/26/17 10:20 Blood-Venous Gram Stain - Final TEST NOT PERFORMED 11/26/17 10:20 Blood-Venous Blood Culture - Final NO GROWTH AFTER 5 DAYS 11/26/17 10:20 Blood-Venous Gram Stain - Final TEST NOT PERFORMED Most Recent Lab Values WBC 6.4 10^3/ul (4.5-11.0) 12/02/17 07:30 RBC 4.94 10^6/uL (3.5-6.1) 12/02/17 07:30 Hgb 13.3 g/dL (14.0-18.0) L 12/02/17 07:30 Hct 40.4 % (42.0-52.0) L 12/02/17 07:30 MCV 81.8 fl (80.0-105.0) 12/02/17 07:30 MCH 26.9 pg (25.0-35.0) 12/02/17 07:30 MCHC 32.9 g/dl (31.0-37.0) 12/02/17 07:30 RDW 13.3 % (11.5-14.5) 12/02/17 07:30 Plt Count 263 10^3/uL (120.0-450.0) 12/02/17 07:30 MPV 9.3 fl (7.0-11.0) 12/02/17 07:30 Gran % 53.3 % (50.0-68.0) 12/02/17 07:30 Lymph % (Auto) 30.4 % (22.0-35.0) 12/02/17 07:30 [place] % (Auto) 12.4 % (1.0-6.0) H 12/02/17 07:30 Eos % (Auto) 2.8 % (1.5-5.0) 12/02/17 07:30 Baso % (Auto) 1.1 % (0.0-3.0) 12/02/17 07:30 Gran # 3.41 (1.4-6.5) 12/02/17 07:30 Lymph # (Auto) 1.9 (1.2-3.4) 12/02/17 07:30 [place] # (Auto) 0.8 (0.1-0.6) H 12/02/17 07:30 Eos # (Auto) 0.2 (0.0-0.7) 12/02/17 07:30 Baso # (Auto) 0.07 K/mm3 (0.0-2.0) 12/02/17 07:30 Neutrophils % (Manual) 40 % (50.0-70.0) L 11/29/17 11:40 Band Neutrophils % 4 % (0-2) H 11/29/17 11:40 Lymphocytes % (Manual) 39 % (22.0-35.0) H 11/29/17 11:40 Atypical Lymphs % 3 % (0.0-0.0) H 11/29/17 11:40 Monocytes % (Manual) 13 % (1.0-6.0) H 11/29/17 11:40 Eosinophils % (Manual) 1 % (0.0-3.0) 11/29/17 11:40 PT 13.2 SECONDS (9.4-12.5) H 11/27/17 06:30 INR 1.14 11/27/17 06:30 APTT 27.0 Seconds (25.1-36.5) 11/27/17 06:30 pO2 33 mm/Hg (30-55) 11/26/17 10:20 VBG pH 7.39 (7.32-7.43) 11/26/17 10:20 VBG pCO2 40.0 (40-60) 11/26/17 10:20 VBG HCO3 24.2 mmol/l (21-28) 11/26/17 10:20 VBG Total CO2 25.4 mmol.L (22-28) 11/26/17 10:20 VBG O2 Sat (Calc) 64.1 % (40-65) 11/26/17 10:20 VBG Base Excess -0.7 mmol/L (0.0-2.0) L 11/26/17 10:20 VBG Potassium 4.2 mmol/L (3.6-5.2) 11/26/17 10:20 Sodium 137.0 mmol/L (132-148) 11/26/17 10:20 Chloride 104.0 mmol/L (98-107) 11/26/17 10:20 Glucose 118 mg/dl (75-110) H 11/26/17 10:20 Lactate 1.4 mmol/L (0.7-2.1) 11/26/17 10:20 FiO2 21.0 % 11/26/17 10:20 Sodium 140 mmol/L (132-148) 12/02/17 07:30 Potassium 3.7 mmol/L (3.6-5.0) 12/02/17 07:30 Chloride 105 mmol/L (98-107) 12/02/17 07:30 Carbon Dioxide 27 mmol/L (21-33) 12/02/17 07:30 Anion Gap 12 (10-20) 12/02/17 07:30 BUN 13 mg/dL (7-21) 12/02/17 07:30 Creatinine 1.0 mg/dl (0.8-1.5) 12/02/17 07:30 Est GFR ( Amer) > 60 12/02/17 07:30 Est GFR (Non-Af Amer) > 60 12/02/17 07:30 Random Glucose 98 mg/dL (70-110) 12/02/17 07:30 Calcium 9.1 mg/dL (8.4-10.5) 12/02/17 07:30 Phosphorus 2.7 mg/dL (2.5-4.5) 11/29/17 11:40 Magnesium 2.3 mg/dL (1.7-2.2) H 11/29/17 11:40 Total Bilirubin 0.3 mg/dL (0.2-1.3) 12/02/17 07:30 AST 45 U/L (17-59) 12/02/17 07:30 ALT 67 U/L (7-56) H 12/02/17 07:30 Alkaline Phosphatase 53 U/L (38-126) 12/02/17 07:30 Lactate Dehydrogenase 1329 U/L (333-699) H 11/26/17 10:20 Total Creatine Kinase 80 U/L (35-230) 11/26/17 10:20 Troponin I 0.01 ng/mL 11/26/17 10:20 Total Protein 6.5 g/dL (5.8-8.3) 12/02/17 07:30 Albumin 3.5 g/dL (3.0-4.8) 12/02/17 07:30 Globulin 3.0 gm/dL 12/02/17 07:30 Albumin/Globulin Ratio 1.1 (1.1-1.8) 12/02/17 07:30 Amylase 68 U/L (35-125) 11/26/17 10:20 Lipase 27 U/L (23-300) 11/26/17 10:20 Venous Blood Potassium 4.2 mmol/L (3.6-5.2) 11/26/17 10:20 Urine Color Yellow (YELLOW) 11/26/17 10:20 Urine Appearance Clear (CLEAR) 11/26/17 10:20 Urine pH 5.5 (4.7-8.0) 11/26/17 10:20 Ur Specific [place] >= 1.030 (1.005-1.035) 11/26/17 10:20 Urine Protein 30 mg/dL (<30 mg/dL) H 11/26/17 10:20 Urine Glucose (UA) Negative mg/dL (NEGATIVE) 11/26/17 10:20 Urine Ketones Trace mg/dL (NEGATIVE) H 11/26/17 10:20 Urine Blood Negative (NEGATIVE) 11/26/17 10:20 Urine Nitrate Negative (NEGATIVE) 11/26/17 10:20 Urine Bilirubin Negative (NEGATIVE) 11/26/17 10:20 Urine Urobilinogen 0.2 E.U./dL (<1 E.U./dL) 11/26/17 10:20 Ur Leukocyte Esterase Negative Sandrine/uL (NEGATIVE) 11/26/17 10:20 Urine RBC 0 - 2 /hpf (0-2) 11/26/17 10:20 Urine WBC 0 - 2 /hpf (0-6) 11/26/17 10:20 Ur Epithelial Cells 0 - 2 /hpf (0-5) 11/26/17 10:20 Amorphous Sediment Few 11/26/17 10:20 Urine Bacteria Many (NEG) 11/26/17 10:20 Hyaline Casts 0 - 2 /hpf 11/26/17 10:20 Urine Other Uyeast 11/26/17 10:20 - Hospital Course Hospital Course: 57 y/o M with PMHx of HTN, HLD, GERD, and BPH presented to [facility] with one day of nausea and associated non-bloody, non-bilious vomiting and diffuse abdominal pain. CT abdomen/pelvis showed high-grade SBO with transition in the distal ileum in the RLQ. Upon admission, patient was started on NPO diet and NGT with suctioning. Patient was give normal saline at 100mls/hr, morphine PRN for severe pain, zofran PRN fo r nausea and vomiting, and colace. After NGT was removed, patient had bilious vomiting. Vomiting resolved and patient was advanced to clear liquid diet. GI series showed no obstruction or stenosis. GI recommends outpatient EGD given history of hiatal hernia and long standing GERD. Patient has history of HTN and home PO medications were held. Patient was started on Vasotec PRN. On morning of discharge, patient denied nausea and vomiting, no fever, having soft bowel movements. Abdominal pain resolved. Patient is able to tolerate PO. Patient is encouraged to follow up with GI outpatient for EGD and colonoscopy as per GI recommendations. Patient was medically optimized to be discharged home. On discharge: Please follow up with your Primary Care Physician Dr Leija within 3-5 days of discharge. Please follow up with a [facility] of your choice within 7-14 days for EGD and colonoscopy. Please resume your home medications as prescribed by your doctors. Please follow a heart healthy diet that is low in fat and carbohydrates and eat small frequent meals. If your symptoms return, please return to nearest emergency room. Discharge Exam - Head Exam Head Exam: ATRAUMATIC, NORMAL INSPECTION - Eye Exam Eye Exam: Normal appearance, PERRL Pupil Exam: NORMAL ACCOMODATION - ENT Exam ENT Exam: Mucous Membranes Moist, Normal Oropharynx - Neck Exam Neck exam: Full Rom, Normal Inspection - Respiratory Exam Respiratory Exam: Clear to PA & Lateral, NORMAL BREATHING PATTERN - Cardiovascular Exam Cardiovascular Exam: REGULAR RHYTHM, +S1, +S2 - GI/Abdominal Exam GI & Abdominal Exam: Normal Bowel Sounds, Soft. absent: Firm, Guarding - Extremities Exam Extremities exam: full ROM, normal capillary refill, pedal pulses present - Back Exam Back exam: NORMAL INSPECTION - Neurological Exam Neurological exam: Alert, CN II-XII Intact, Normal Gait, Oriented x3, Reflexes Normal - Psychiatric Exam Psychiatric exam: Normal Affect, Normal Mood - Skin Skin Exam: Dry, Intact, Normal Color, Warm Discharge Plan - Follow Up Plan Condition: STABLE Disposition: HOME/ ROUTINE Instructions: Small Bowel Obstruction (DC) Additional Instructions: Please follow up with your Primary Care Physician Dr Leija within 3-5 days of discharge. Please follow up with a [facility] of your choice within 7-14 days for EGD and colonoscopy. follow up with [facility] GI clinic. Please resume your home medications as prescribed by your doctors. Please follow a heart healthy diet that is low in fat and carbohydrates and eat small frequent meals. If your symptoms return, please return to nearest emergency room. Referrals: Kelly Michael MD [Medical Doctor] - [place] MD [Medical Doctor] - <Sourav Vilchis - Last Filed: 12/02/17 18:46> Provider - Provider Date of Admission: 11/26/17 13:28 Attending physician: Sourav Viclhis MD Hospital Course - Lab Results Lab Results: Micro Results 11/26/17 10:20 Blood-Venous Blood Culture - Final NO GROWTH AFTER 5 DAYS 11/26/17 10:20 Blood-Venous Gram Stain - Final TEST NOT PERFORMED 11/26/17 10:20 Blood-Venous Blood Culture - Final NO GROWTH AFTER 5 DAYS 11/26/17 10:20 Blood-Venous Gram Stain - Final TEST NOT PERFORMED Most Recent Lab Values WBC 6.4 10^3/ul (4.5-11.0) 12/02/17 07:30 RBC 4.94 10^6/uL (3.5-6.1) 12/02/17 07:30 Hgb 13.3 g/dL (14.0-18.0) L 12/02/17 07:30 Hct 40.4 % (42.0-52.0) L 12/02/17 07:30 MCV 81.8 fl (80.0-105.0) 12/02/17 07:30 MCH 26.9 pg (25.0-35.0) 12/02/17 07:30 MCHC 32.9 g/dl (31.0-37.0) 12/02/17 07:30 RDW 13.3 % (11.5-14.5) 12/02/17 07:30 Plt Count 263 10^3/uL (120.0-450.0) 12/02/17 07:30 MPV 9.3 fl (7.0-11.0) 12/02/17 07:30 Gran % 53.3 % (50.0-68.0) 12/02/17 07:30 Lymph % (Auto) 30.4 % (22.0-35.0) 12/02/17 07:30 [place] % (Auto) 12.4 % (1.0-6.0) H 12/02/17 07:30 Eos % (Auto) 2.8 % (1.5-5.0) 12/02/17 07:30 Baso % (Auto) 1.1 % (0.0-3.0) 12/02/17 07:30 Gran # 3.41 (1.4-6.5) 12/02/17 07:30 Lymph # (Auto) 1.9 (1.2-3.4) 12/02/17 07:30 [place] # (Auto) 0.8 (0.1-0.6) H 12/02/17 07:30 Eos # (Auto) 0.2 (0.0-0.7) 12/02/17 07:30 Baso # (Auto) 0.07 K/mm3 (0.0-2.0) 12/02/17 07:30 Neutrophils % (Manual) 40 % (50.0-70.0) L 11/29/17 11:40 Band Neutrophils % 4 % (0-2) H 11/29/17 11:40 Lymphocytes % (Manual) 39 % (22.0-35.0) H 11/29/17 11:40 Atypical Lymphs % 3 % (0.0-0.0) H 11/29/17 11:40 Monocytes % (Manual) 13 % (1.0-6.0) H 11/29/17 11:40 Eosinophils % (Manual) 1 % (0.0-3.0) 11/29/17 11:40 PT 13.2 SECONDS (9.4-12.5) H 11/27/17 06:30 INR 1.14 11/27/17 06:30 APTT 27.0 Seconds (25.1-36.5) 11/27/17 06:30 pO2 33 mm/Hg (30-55) 11/26/17 10:20 VBG pH 7.39 (7.32-7.43) 11/26/17 10:20 VBG pCO2 40.0 (40-60) 11/26/17 10:20 VBG HCO3 24.2 mmol/l (21-28) 11/26/17 10:20 VBG Total CO2 25.4 mmol.L (22-28) 11/26/17 10:20 VBG O2 Sat (Calc) 64.1 % (40-65) 11/26/17 10:20 VBG Base Excess -0.7 mmol/L (0.0-2.0) L 11/26/17 10:20 VBG Potassium 4.2 mmol/L (3.6-5.2) 11/26/17 10:20 Sodium 137.0 mmol/L (132-148) 11/26/17 10:20 Chloride 104.0 mmol/L (98-107) 11/26/17 10:20 Glucose 118 mg/dl (75-110) H 11/26/17 10:20 Lactate 1.4 mmol/L (0.7-2.1) 11/26/17 10:20 FiO2 21.0 % 11/26/17 10:20 Sodium 140 mmol/L (132-148) 12/02/17 07:30 Potassium 3.7 mmol/L (3.6-5.0) 12/02/17 07:30 Chloride 105 mmol/L (98-107) 12/02/17 07:30 Carbon Dioxide 27 mmol/L (21-33) 12/02/17 07:30 Anion Gap 12 (10-20) 12/02/17 07:30 BUN 13 mg/dL (7-21) 12/02/17 07:30 Creatinine 1.0 mg/dl (0.8-1.5) 12/02/17 07:30 Est GFR ( Amer) > 60 12/02/17 07:30 Est GFR (Non-Af Amer) > 60 12/02/17 07:30 Random Glucose 98 mg/dL (70-110) 12/02/17 07:30 Calcium 9.1 mg/dL (8.4-10.5) 12/02/17 07:30 Phosphorus 2.7 mg/dL (2.5-4.5) 11/29/17 11:40 Magnesium 2.3 mg/dL (1.7-2.2) H 11/29/17 11:40 Total Bilirubin 0.3 mg/dL (0.2-1.3) 12/02/17 07:30 AST 45 U/L (17-59) 12/02/17 07:30 ALT 67 U/L (7-56) H 12/02/17 07:30 Alkaline Phosphatase 53 U/L (38-126) 12/02/17 07:30 Lactate Dehydrogenase 1329 U/L (333-699) H 11/26/17 10:20 Total Creatine Kinase 80 U/L (35-230) 11/26/17 10:20 Troponin I 0.01 ng/mL 11/26/17 10:20 Total Protein 6.5 g/dL (5.8-8.3) 12/02/17 07:30 Albumin 3.5 g/dL (3.0-4.8) 12/02/17 07:30 Globulin 3.0 gm/dL 12/02/17 07:30 Albumin/Globulin Ratio 1.1 (1.1-1.8) 12/02/17 07:30 Amylase 68 U/L (35-125) 11/26/17 10:20 Lipase 27 U/L (23-300) 11/26/17 10:20 Venous Blood Potassium 4.2 mmol/L (3.6-5.2) 11/26/17 10:20 Urine Color Yellow (YELLOW) 11/26/17 10:20 Urine Appearance Clear (CLEAR) 11/26/17 10:20 Urine pH 5.5 (4.7-8.0) 11/26/17 10:20 Ur Specific [place] >= 1.030 (1.005-1.035) 11/26/17 10:20 Urine Protein 30 mg/dL (<30 mg/dL) H 11/26/17 10:20 Urine Glucose (UA) Negative mg/dL (NEGATIVE) 11/26/17 10:20 Urine Ketones Trace mg/dL (NEGATIVE) H 11/26/17 10:20 Urine Blood Negative (NEGATIVE) 11/26/17 10:20 Urine Nitrate Negative (NEGATIVE) 11/26/17 10:20 Urine Bilirubin Negative (NEGATIVE) 11/26/17 10:20 Urine Urobilinogen 0.2 E.U./dL (<1 E.U./dL) 11/26/17 10:20 Ur Leukocyte Esterase Negative Sandrine/uL (NEGATIVE) 11/26/17 10:20 Urine RBC 0 - 2 /hpf (0-2) 11/26/17 10:20 Urine WBC 0 - 2 /hpf (0-6) 11/26/17 10:20 Ur Epithelial Cells 0 - 2 /hpf (0-5) 11/26/17 10:20 Amorphous Sediment Few 11/26/17 10:20 Urine Bacteria Many (NEG) 11/26/17 10:20 Hyaline Casts 0 - 2 /hpf 11/26/17 10:20 Urine Other Uyeast 11/26/17 10:20 Attending/Attestation - Attestation I have personally seen and examined this patient.: Yes I have fully participated in the care of the patient.: Yes I have reviewed all pertinent clinical information, including history, physical exam and plan: Yes Notes (Text): 12/02/17 18:45 Attending note; Patient seen and examined with resident. Patient's by the bedside. tolerating regular diet. Denies any nausea, vomiting. Denies any abdominal pain. Had regular BMs today. Patient is a 57-year-old male with past medical history significant for hypertension, hyperlipidemia, GERD, and BPH who presented to the emergency room with abdominal pain, nausea, vomiting. 1. Small bowel obstruction. S/P NGT removal. Abdominal x-ray showed decreased bowel dilatation. small bowel series is negative for obstruction. Tolerating diet. GI evaluation appreciated. outpatient EGD and colonoscopy recommended. 2. hypertension; patient can resume Norvasc and Cozaar home Medications. 3.BPH; continue Flomax at home. 4. Hypercholesterolemia; continue pravastatin at home. Upon discharge the patient will follow-up with Dr. Mckeon. advised to follow up with GI per PMD or DNJ. Case discussed in detail with patient regarding current diagnosis and treatment plan.
== END 2017-12-02 11:47 | disposition home or self-care (01) | DRG 390 ==
LOC: ED 08:24 → ERH 13:28 → 3RNO 15:40
PROVIDERS: ADMIT Internal Medicine; ATTEND Internal Medicine
PROC: 0D9670Z Drainage of Stomach with Drainage Device, Via Natural or Artificial Opening (ICD-10-PCS; principal; 2017-11-27)
DX: K56.609 Unspecified intestinal obstruction, unspecified as to partial versus complete obstruction (principal); N40.0 Benign prostatic hyperplasia without lower urinary tract symptoms; I10 Essential (primary) hypertension; K21.9 Gastro-esophageal reflux disease without esophagitis; E78.00 Pure hypercholesterolemia, unspecified; E78.5 Hyperlipidemia, unspecified; K44.9 Diaphragmatic hernia without obstruction or gangrene; Z79.82 Long term (current) use of aspirin; Z82.49 Family history of ischemic heart disease and other diseases of the circulatory system; Z87.11 Personal history of peptic ulcer disease

== ENCOUNTER → 2018-02-13 | Day surgery (SDC) | payer MEDICARE, OTHER ==
[2018-02-08 16:14] VITALS: BMI 26.6
[~2018-02-13] MED LIST: Propofol 10 mg/ml Inj (20 ML) ONE; Sodium Chloride 0.9% 1,000 ML IV SCH
[2018-02-13 15:52] VITALS: BP 122/79; PULSE 66; RESP 16; TEMP 97.9; O2SAT 97
== END | disposition home or self-care (01) ==
LOC: ENDO 10:41
PROVIDERS: ATTEND Internal Medicine Gastroenterology
DX: K21.9 Gastro-esophageal reflux disease without esophagitis (principal); K29.50 Unspecified chronic gastritis without bleeding; K57.30 Diverticulosis of large intestine without perforation or abscess without bleeding; K64.8 Other hemorrhoids; K56.699 Other intestinal obstruction unspecified as to partial versus complete obstruction; Q43.8 Other specified congenital malformations of intestine; I10 Essential (primary) hypertension; K44.9 Diaphragmatic hernia without obstruction or gangrene; Z80.6 Family history of leukemia
CPT/HCPCS: 43239; 45380; 88305; 88342; J2704; J3010; J7030; J7040

== ENCOUNTER 2018-03-22 09:37 | Outpatient (CLI) | payer MEDICARE, OTHER | END 2018-03-22 09:38 | disposition home or self-care (01) | LOC: LAB 09:37 ==

== ENCOUNTER 2018-05-17 14:02 | Outpatient (CLI) | payer MEDICARE, OTHER | END 2018-05-17 14:03 | disposition home or self-care (01) | LOC: RAD 14:02 ==